=== PATIENT | male | born 1930 | race Caucasian/White ===

== ENCOUNTER 2017-07-23 04:53 | Inpatient (IN) | payer MEDICARE, OTHER ==
[2017-06-26 12:34] VITALS: BMI 29.0
[2017-06-26 12:44] LABS: BASO % 0.5 %; BASO ABS # 0.03 K/uL (0-0.2); EOS % 4.4 %; EOS ABS # 0.24 K/uL (0-0.5); HEMOGLOBIN 12.3 g/dL (14.0-18.0); IG# 0.01 K/uL (0.00-0.02); LYMPH % 23.4 %; LYMPH ABS # 1.28 K/uL (1.2-3.4); MEAN CELL VOLUME 98.9 fL (80-100); MEAN CORPUSCULAR HEMOGLOBIN 33.8 pg (25-34); MEAN CORPUSCULAR HGB CONC 34.2 g/dl (32-36); MONO % 13.1 %; MONO ABS # 0.72 K/uL (0.11-0.59); NEUT % 58.4 %; PLATELET COUNT 209 K/uL (130-400); RED CELL DISTRIBUTION WIDTH CV 13.1 % (11.5-14.5); RED CELL DISTRIBUTION WIDTH SD 46.8 fL (36.4-46.3); WHITE BLOOD COUNT 5.48 K/uL (4.8-10.8)
[2017-06-26 13:00] LABS: HEMOGLOBIN A1C 6.2 % (4.5-5.6)
--- NOTE | 2017-06-26 13:12 | PAT Medication Instructions ---
Service Date Jun 26, 2017. Current Home Medication List Aspirin (Aspirin), 325 MG PO QAM Calcium Citrate-Vitamin D (Citracal + D3 Maximum), 1 TAB PO QAM Cholecalciferol (Vitamin D3), 1 TAB PO QAM Fenofibrate (Tricor), 48 MG PO QAM Folic Acid (Folvite), 1 MG PO QAM Insulin Human NPH (Humulin N) Insulin Human Regular (Humulin R), 17 UNITS INJ QAM Levothyroxine Sodium (Levothyroxine Sodium), 1 TAB PO QAM Losartan Potassium (Cozaar), 50 MG PO QAM Rosuvastatin Calcium (Crestor), 20 MG PO QPM [Vitamin B12], 1 DOSE INJ MONTHLY Medication Instructions For Your Scheduled Surgery - Continue as directed: [Vitamin B12], 1 DOSE INJ MONTHLY - Check with surgeon and prescribing physician for instructions: Aspirin (Aspirin), 325 MG PO QAM - Hold the following medication 24 hours prior to surgery: Fenofibrate (Tricor), 48 MG PO QAM - Hold the following medications the morning of surgery: Insulin Human Regular (Humulin R), 17 UNITS INJ QAM Calcium Citrate-Vitamin D (Citracal + D3 Maximum), 1 TAB PO QAM Cholecalciferol (Vitamin D3), 1 TAB PO QAM Folic Acid (Folvite), 1 MG PO QAM Losartan Potassium (Cozaar), 50 MG PO QAM - Take the following medications the morning of surgery with a sip of water: Levothyroxine Sodium (Levothyroxine Sodium), 1 TAB PO QAM - Take the following medications as scheduled the night before surgery: Rosuvastatin Calcium (Crestor), 20 MG PO QPM Insulin Human NPH (Humulin N) AM (18 units)/HS (35 units) - For Insulin Dependent Diabetic patients: Test blood sugar A.M. of surgery. - If Blood sugar greater than 150, take half of your regular dose of: Insulin Human NPH (Humulin N) AM take 9 units - If Blood sugar less than 150, do not take any: Insulin Human NPH ( Humulin N) AM If you have any questions please call us at [phone] or [phone] or [phone]
--- NOTE | 2017-06-26 13:37 | DIAGNOSTIC IMAGING REPORT ---
CHEST 2 VIEWS ROUTINE CLINICAL HISTORY: pat preoperative evaluation COMPARISON STUDY: 03/07/2016 FINDINGS: Mild interstitial prominence throughout both hemithoraces considered chronic. Heart top normal in terms of size also chronic. No focal infiltrate. Diaphragms smooth. IMPRESSION: Chronic change. No acute process. The above report was generated using voice recognition software. It may contain grammatical, syntax or spelling errors. Electronically signed by: Evan Quiñones M.D. 06/26/2017 1:35 PM Dictated Date/Time: 06/26/2017 1:34 PM
[2017-06-26 13:56] LABS: ALBUMIN 3.7 gm/dl (3.4-5.0); CALCIUM 9.3 mg/dl (8.5-10.1); CREATININE 1.31 mg/dl (0.60-1.40); POTASSIUM 4.4 mmol/L (3.5-5.1)
--- NOTE | 2017-07-22 19:04 | HISTORY & PHYSICAL EXAMINATION ---
DATE OF ADMISSION: 07/23/2017 CHIEF COMPLAINT: Chronic right shoulder pain. HISTORY OF PRESENT ILLNESS: This is an 86-year-old male patient of Dr. Mcbride'stephon complaining of chronic right shoulder pain, longstanding, now progressively getting worse. The patient has failed conservative treatment. He has been diagnosed with chronic rotator cuff tendinopathy. The patient wishes to proceed with a right reversed total shoulder arthroplasty. PAST MEDICAL HISTORY: Hypertension, hypercholesterolemia, sleep apnea, history of a mini stroke, diabetes mellitus with insulin and prostate cancer. SOCIAL HISTORY: Nonsmoker, occasional drinker. PAST SURGICAL HISTORY: Aneurysm, prostate cancer with treatment and benign larynx nodule removal. FAMILY HISTORY: Noncontributory. REVIEW OF SYSTEMS: The patient complains of chronic right shoulder pain and weakness. Otherwise, denies any shortness of breath, chest pain, nausea, vomiting or any other joint complaints. MEDICATIONS: Levothyroxine 75 mcg daily, Cozaar 50 mg daily, TriCor 48 mg daily, Crestor 20 mg daily, folic acid 1 mg daily, Vitamin D3 1000 units daily, aspirin 325 daily, Citracal with vitamin D daily, Humulin insulin per scale and vitamin B12 1000 mcg tablet monthly. ALLERGIES: No known drug allergies. PHYSICAL EXAMINATION: GENERAL: Well-developed, well-nourished 86-year-old male in no acute distress. He is alert and oriented x3 and pleasant. HEENT: Normocephalic, atraumatic. Extraocular motions are intact. Pupils are equal and reactive to light. HEART: Regular rate and rhythm. No murmurs are appreciated. Heart has a 2/6 murmur. LUNGS: Clear. ABDOMEN: Soft and nontender, bowel sounds are present. EXTREMITIES: Right shoulder reveals active range of motion 0-160, passively to 0-180, both with crepitation and pain. He has 3/5 external rotation strength and 5/5 internal rotation strength. NEUROLOGIC: Neurovascularly he is intact in his right upper extremity. DIAGNOSES: Right chronic rotator cuff tendinopathy, hypertension, hypercholesterolemia, sleep apnea, history of mini stroke, diabetes mellitus with insulin and prostate cancer. PLAN: The patient was advised of his diagnoses. Indications, risks, benefits, and postop course have all been reviewed. The patient wishes to proceed with a right shoulder reverse total shoulder arthroplasty. Necessary consent forms, preoperative testing and clearances will be obtained.
[2017-07-23] VITALS (11 sets, daily range): BP systolic 116–195; BP diastolic 66–87; PULSE 65–81; TEMP 36.4–36.8; O2SAT 94–98; Ht 167.6 cm; Wt 83.0 kg
[~2017-07-23] VITALS: Ht 167.6 cm; Wt 83.0 kg
[~2017-07-23 04:53] MED LIST: ASPI325T45 PO; CALC1TAB9 PO; CHOL1000 PO; FENO48TA9 PO; FOLI1TAB8 PO; INSHNI; INSHRIE INJ; LEVO75TA5 PO; LOSA50TA6 PO; ROSU20TA PO; VITAMIN B12 INJ
[2017-07-23] MEDS ORDERED: ACETAMINOPHEN 500 MG TAB PO SCH (06:00)
[2017-07-23] MEDS ORDERED: LACTATED RINGER'S 1000ML 1,000 ML IV SCH (06:00)
[2017-07-23] MEDS ORDERED: CEFAZOLIN 2000MG IV PUSH 15 ML IV SCH (06:00)
[2017-07-23] MEDS ORDERED: CeleBREX 200 MG CAP PO SCH (06:00)
[2017-07-23] MEDS ORDERED: METOCLOPRAMIDE HCL 10 MG TAB PO SCH (06:00)
[2017-07-23] MEDS ORDERED: FAMOTIDINE 20 MG TAB PO SCH (06:00)
[2017-07-23] MEDS ORDERED: GABAPENTIN 300 MG CAP PO SCH (06:00)
[2017-07-23] MEDS ORDERED: PROPOFOL IV EMULSION 10 MG/ML 20 ML VIAL IV ONE (06:28)
[2017-07-23] MEDS ORDERED: GLYCOPYRROLATE INJ 0.2 MG/ML VIAL ONE (06:28)
[2017-07-23] MEDS ORDERED: NEOSTIGMINE METHYLSULFATE 5 MG/5 ML SYR ONE (06:28)
[2017-07-23] MEDS ORDERED: DEXAMETHASONE SOD INJ 4 MG/ML VIAL ONE (06:28)
[2017-07-23] MEDS ORDERED: LIDOCAINE HCL 2% 2 ML VIAL (20MG/ML) ONE ×2 (06:28→06:50)
[2017-07-23] MEDS ORDERED: ONDANSETRON INJ 2 MG/ML 2 ML VIAL ONE (06:28)
[2017-07-23] MEDS ORDERED: MIDAZOLAM HCL 1 MG/ML 2ML VIAL ONE (06:29)
[2017-07-23] MEDS ORDERED: FENTANYL CITRATE INJ 50 MCG/1 ML 2 ML VIAL ONE (06:29)
[2017-07-23] MEDS ORDERED: ROPIVACAINE 0.5% 5 MG/ML 30 ML VIAL ONE (06:30)
[2017-07-23] MEDS ORDERED: ROCURONIUM BROMIDE 10 MG/ML 5 ML VIAL IV ONE (06:32)
[2017-07-23] MEDS ORDERED: BACITRACIN 50000 UNIT VIAL ONE (06:43)
--- NOTE | 2017-07-23 07:10 | History & Physical Bridge Note ---
H&P Re-Evaluation Bridge Note: I have examined the patient, reviewed the History & Physical and in the interval since the performance of the History & Physical I have noted the following changes of clinical significance: No changes noted
[2017-07-23] MEDS ORDERED: EpHEDrine SULFATE INJ 50 MG/ML AMP IV PRN (07:45)
[2017-07-23] MEDS ORDERED: ATROPINE SULFATE 0.1 MG/ML 5ML SYR IV PRN (07:45)
[2017-07-23] MEDS ORDERED: FENTANYL CITRATE INJ 50 MCG/1 ML 2 ML VIAL IV PRN (07:45)
[2017-07-23] MEDS ORDERED: ONDANSETRON INJ 2 MG/ML 2 ML VIAL IV PRN ×2 (07:45→10:00)
[2017-07-23] MEDS ORDERED: EpHEDrine SULFATE 50MG/5ML SYR ONE (09:24)
[2017-07-23] MEDS ORDERED: PHENYLEPHRINE 100MCG/ML 5ML SYR ONE (09:24)
--- NOTE | 2017-07-23 09:41 | [facility] Post Operative Brief Note ---
Immediate Operative Summary Operative Date Jul 23, 2017. Pre-Operative Diagnosis Right chronic rotator cuff tear and rotator cuff arthropathy Post-Operative Diagnosis Right chronic rotator cuff tear and arthropathy,chronic biceps tendinopathy Procedure(s) Performed Reverse Right total shoulder arthroplasty; biceps tenodesis Surgeon Dr. Mcbride [employer] Summer Intern Surgeon(s) Evan Lopez PA-C Estimated Blood Loss 30cc Findings Consistent with Post-Op Diagnosis Specimens A. Right humeral head Drains 2 hemovac Anesthesia Type General Regional Complication(s) none
[2017-07-23] MEDS ORDERED: METOCLOPRAMIDE HCL INJ 5 MG/ML 2 ML VIAL IV PRN (10:00)
[2017-07-23] MEDS ORDERED: MoRPHine SULFATE 2 MG/ML CARP IV PRN ×2 (10:00→10:15)
[2017-07-23] MEDS ORDERED: MAGNESIUM HYDROXIDE SUSP 30 ML UDC PO PRN (10:00)
[2017-07-23] MEDS ORDERED: SOD PHOSPHATE/SOD BIPHOSPHATE ENEMA 132 ML BTL PR PRN (10:00)
[2017-07-23] MEDS ORDERED: ZOLPIDEM TARTRATE 5 MG TAB PO PRN (10:00)
[2017-07-23] MEDS ORDERED: BISACODYL 10 MG SUPP PR PRN (10:00)
[2017-07-23] MEDS ORDERED: NALOXONE HCL 0.4 MG/1 ML VIAL/CARP IV PRN (10:00)
[2017-07-23] MEDS ORDERED: MoRPHine SULFATE 4 MG/ML 1 ML CARP\\VIAL IV PRN (10:15)
--- NOTE | 2017-07-23 10:21 | Anesthesiology Progress Note ---
Anesthesia Post Op Note Date & Time Jul 23, 2017 at 10:21 Vital Signs Pain Intensity: 0 Vital Signs Past 12 Hours Date Time Temp Pulse Resp B/P (MAP) Pulse Ox O2 Delivery O2 Flow Rate FiO2 07/23/17 10:10 68 12 160/65 99 Oxymask 10 07/23/17 10:00 68 13 156/65 99 Oxymask 10 07/23/17 09:50 36.5 73 21 158/65 99 Oxymask 10 07/23/17 05:46 36.5 77 18 195/69 95 Room Air Notes Mental Status: alert / awake / arousable, participated in evaluation Pt Amnestic to Procedure: Yes Nausea / Vomiting: adequately controlled Pain: adequately controlled Airway Patency, RR, SpO2: stable & adequate BP & HR: stable & adequate Hydration State: stable & adequate Anesthetic Complications: no major complications apparent
[2017-07-23] MEDS ORDERED: GLUCOSE 10 TABS/TUBE PO PRN (10:30)
[2017-07-23] MEDS ORDERED: DEXTROSE 50% 50 ML SYR IV PRN (10:30)
[2017-07-23] MEDS ORDERED: GLUCOSE 40% GEL 15 GM TUBE PO PRN (10:30)
[2017-07-23] MEDS ORDERED: GLUCAGON FOR INJ 1 MG VIAL SQ PRN (10:30)
--- NOTE | 2017-07-23 10:58 | DIAGNOSTIC IMAGING REPORT ---
R SHOULDER MIN 2 VIEWS ROUTINE CLINICAL HISTORY: Post shoulder surgery COMPARISON: None. DISCUSSION: There are postsurgical changes of a reverse total right shoulder arthroplasty. Overlying skin sandra and surgical drains are evident. There is no dislocation. Incidental note is made of blunting of the right lateral costophrenic angle and right basilar airspace opacities IMPRESSION: 1. Postsurgical changes of a total right shoulder arthroplasty. No evidence of dislocation 2. Nonspecific right basilar pulmonary airspace opacities. Blunting of the right lateral costophrenic angle Electronically signed by: Robbie Hutchison M.D. 07/23/2017 10:56 AM Dictated Date/Time: 07/23/2017 10:55 AM
--- NOTE | 2017-07-23 11:29 | Medical Consult ---
Consultation Date of Consultation: Jul 23, 2017. Attending Physician: Gilbert Mcbride M.D. Family History No significant family history Social History Smoking Status: Former Smoker Marital Status: Housing Status: lives with family Occupation Status: retired Allergies Coded Allergies: No Known Allergies (Unverified , 07/23/17) Current Inpatient Medications Current Inpatient Medications Medications (Trade) Dose Ordered Sig/Adin Route Start Time Stop Time Status Last Admin Dose Admin Cefazolin Sodium 15 ml @ 3.75 mls/ min PREOP IV 07/23/17 06:00 07/23/17 18:00 07/23/17 07:18 3.75 MLS/MIN Acetaminophen (Tylenol Tab) 1,000 mg PREOP PO 07/23/17 06:00 07/23/17 18:00 07/23/17 06:08 1,000 MG Celecoxib (CeleBREX CAP) 200 mg PREOP PO 07/23/17 06:00 07/23/17 18:00 07/23/17 06:08 200 MG Famotidine (Pepcid Tab) 20 mg PREOP PO 07/23/17 06:00 07/23/17 18:00 07/23/17 06:07 20 MG Gabapentin (Neurontin Cap) 300 mg PREOP PO 07/23/17 06:00 07/23/17 18:00 07/23/17 06:07 300 MG Metoclopramide HCl (Reglan Tab) 10 mg PREOP PO 07/23/17 06:00 07/23/17 18:00 07/23/17 06:07 10 MG Lactated Ringer's 1,000 ml @ 15 mls/hr Q24H IV 07/23/17 06:00 07/24/17 05:59 07/23/17 06:29 15 MLS/HR Fentanyl Citrate (Fentanyl Inj) 25 mcg Q5M PRN IV 07/23/17 07:45 07/23/17 12:45 Ondansetron HCl (Zofran Inj) 4 mg ONE PRN IV 07/23/17 07:45 07/23/17 12:45 Ephedrine Sulfate (EpHEDrine SULFATE INJ) 5 mg Q5M PRN IV 07/23/17 07:45 07/23/17 12:45 Atropine Sulfate (Atropine Sulfate 0.1mg/ml Inj) 0.5 mg Q1M PRN IV 07/23/17 07:45 07/23/17 12:45 Aspirin (Ecotrin Tab) 325 mg QAM PO 07/24/17 09:00 08/23/17 08:59 Cholecalciferol (Vitamin D Tab) 1,000 inter.unit QAM PO 07/24/17 09:00 08/23/17 08:59 Fenofibrate (Tricor Tab) 48 mg QAM PO 07/24/17 09:00 08/23/17 08:59 Folic Acid (Folvite Tab) 1 mg QAM PO 07/24/17 09:00 08/23/17 08:59 Levothyroxine Sodium (Synthroid Tab) 75 mcg DAILYBB PO 07/24/17 06:00 08/23/17 05:59 Losartan Potassium (coZAAR TAB) 50 mg QAM PO 07/24/17 09:00 08/23/17 08:59 Rosuvastatin Calcium (Crestor Tab) 20 mg QPM PO 07/23/17 21:00 08/22/17 20:59 Calcium/Vitamin D (Caltrate Plus Tab) 1 tab DAILY PO 07/24/17 09:00 08/23/17 08:59 Diphenhydramine HCl (Benadryl Cap) 25 mg Q8 PRN PO 07/23/17 10:00 08/22/17 09:59 Zolpidem Tartrate (Ambien Tab) 5 mg HSZ PRN PO 07/23/17 10:00 08/22/17 09:59 Metoclopramide HCl (Reglan Inj) 10 mg Q6H PRN IV 07/23/17 10:00 08/22/17 09:59 Ondansetron HCl (Zofran Inj) 4 mg Q6H PRN IV 07/23/17 10:00 08/22/17 09:59 Pantoprazole Sodium (Protonix Tab) 40 mg QAM PO 07/24/17 09:00 07/27/17 09:01 Potassium Chloride 10 meq/ Sodium Chloride 1,005 ml @ 100 mls/hr Q10H3M IV 07/23/17 11:00 07/24/17 10:00 Oxycodone HCl (Roxicodone Immediate Rel Tab) `1-2 TABS FOR PAIN `1 TAB... Q4H PRN PO 07/23/17 10:00 08/06/17 09:59 Acetaminophen (Tylenol Tab) 1,000 mg Q8 PO 07/23/17 14:00 08/22/17 13:59 Naloxone HCl (Narcan Inj) 0.1 mg Q2M PRN IV 07/23/17 10:00 08/22/17 09:59 Magnesium Hydroxide (Milk Of Magnesia Susp) 30 ml Q6H PRN PO 07/23/17 10:00 08/22/17 09:59 Bisacodyl (Dulcolax Supp) 10 mg DAILY PRN ND 07/23/17 10:00 08/22/17 09:59 Sodium Biphosphate/ Sodium Phosphate (Fleet Enema) 132 ml DAILY PRN ND 07/23/17 10:00 08/22/17 09:59 Docusate Sodium (coLACE CAP) 100 mg BID PO 07/23/17 21:00 08/22/17 20:59 Multivitamins (Multivitamin Tab) 1 tab DAILY PO 07/24/17 09:00 08/23/17 08:59 Cefazolin Sodium 2000 mg/Syringe 15 ml @ 3.75 mls/ min Q8H IV 07/23/17 16:00 07/24/17 00:03 Insulin Aspart (novoLOG ASPART) SLIDING SCALE G... ACHS SC 07/23/17 12:00 08/22/17 11:59 Morphine Sulfate (MoRPHine SULFATE INJ) 2 mg Q2H PRN IV 07/23/17 10:15 08/06/17 10:14 Morphine Sulfate (MoRPHine SULFATE INJ) 4 mg Q2H PRN IV 07/23/17 10:15 08/06/17 10:14 Glucose (Glucose 40% Gel) 15-30 GRAMS 15 GRAMS... UD PRN PO 07/23/17 10:30 08/22/17 10:29 Glucose (Glucose Chew Tab) 4-8 Tablets 4 Tabl... UD PRN PO 07/23/17 10:30 08/22/17 10:29 Dextrose (Dextrose 50% 50ML Syringe) 25-50ML OF 50% DW IV FOR... UD PRN IV 07/23/17 10:30 08/22/17 10:29 Glucagon (Glucagon Inj) 1 mg UD PRN SQ 07/23/17 10:30 08/22/17 10:29 Physical Exam Date Time Temp Pulse Resp B/P (MAP) Pulse Ox O2 Delivery O2 Flow Rate FiO2 07/23/17 11:07 36.6 65 19 149/66 (93) 98 Nasal Cannula 2.0 07/23/17 10:40 98 Nasal Cannula 2.0 07/23/17 10:40 Nasal Cannula 2.0 07/23/17 10:40 36.5 71 16 156/69 (98) 98 Nasal Cannula 2.0 07/23/17 10:20 36.5 70 13 158/78 97 Nasal Cannula 2 07/23/17 10:10 68 12 160/65 99 Oxymask 10 07/23/17 10:00 68 13 156/65 99 Oxymask 10 07/23/17 09:50 36.5 73 21 158/65 99 Oxymask 10 07/23/17 05:46 36.5 77 18 195/69 95 Room Air Laboratory Results Last 24 Hours Test 07/23/17 05:16 07/23/17 09:58 Bedside Glucose 123 mg/dl 134 mg/dl Assessment & Plan Thank you for this consultation. We will follow the patient with you during their hospital stay. You can reach a member of the [facility] Medicine Team 25/12 via pager @ [phone]. You can reach me via cell @ [phone]. .
[2017-07-23] MEDS: POTASSIUM CHLORIDE INJ 10 MEQ in SODIUM CHLORIDE 0.9% 1000ML 1,000 ML IV SCH ×2 (11:49→21:33)
[2017-07-23] MEDS ORDERED: LABETALOL HCL IV 5 MG/ML 20ML IV ONE (11:53)
[2017-07-23] MEDS: INSULIN ASPART 100 UNITS/ML 3 ML PEN SC SCH ×3 (12:38→21:31)
[2017-07-23] MEDS: ACETAMINOPHEN 500 MG TAB PO SCH ×2 (13:14→21:22)
[2017-07-23] MEDS: CEFAZOLIN IV 2,000 MG in SYRINGE 0 ML IV SCH (15:56)
--- NOTE | 2017-07-23 17:03 | Medical Consult ---
Consultation Date of Consultation: Jul 23, 2017. Attending Physician: Gilbert Mcbride M.D. Reason for Consultation: Post Op Medical Management History of Present Illness Patient is an 86 yr male with PMH of Cerebrovascular disease S/P Bleeding aneurysms, CKD III, DM II, HTN, Hypothyroidism, H/O Prostate Cancer, Sleep Apnea , HLP and other problems presents for an elective Reverse Right total shoulder arthroplasty for Right chronic rotator cuff tear and rotator cuff arthropathy by . Patient is doing well post OP. His right shoulder pain is controlled. Denies any chest pain, SOB, dizziness, nausea, abd pain, headache. No complaints post OP. Family History No significant family history Reviewed, Not Relevant Social History Smoking Status: Former Smoker Alcohol Use: none Marital Status: Housing Status: lives with family Occupation Status: retired Allergies Coded Allergies: No Known Allergies (Unverified , 07/23/17) Home Medications Reviewed Current Inpatient Medications Current Inpatient Medications Medications (Trade) Dose Ordered Sig/Adin Route Start Time Stop Time Status Last Admin Dose Admin Cefazolin Sodium 15 ml @ 3.75 mls/ min PREOP IV 07/23/17 06:00 07/23/17 18:00 07/23/17 07:18 3.75 MLS/MIN Acetaminophen (Tylenol Tab) 1,000 mg PREOP PO 07/23/17 06:00 07/23/17 18:00 07/23/17 06:08 1,000 MG Celecoxib (CeleBREX CAP) 200 mg PREOP PO 07/23/17 06:00 07/23/17 18:00 07/23/17 06:08 200 MG Famotidine (Pepcid Tab) 20 mg PREOP PO 07/23/17 06:00 07/23/17 18:00 07/23/17 06:07 20 MG Gabapentin (Neurontin Cap) 300 mg PREOP PO 07/23/17 06:00 07/23/17 18:00 07/23/17 06:07 300 MG Metoclopramide HCl (Reglan Tab) 10 mg PREOP PO 07/23/17 06:00 07/23/17 18:00 07/23/17 06:07 10 MG Lactated Ringer's 1,000 ml @ 15 mls/hr Q24H IV 07/23/17 06:00 2/20/18 05:59 07/23/17 06:29 15 MLS/HR Aspirin (Ecotrin Tab) 325 mg QAM PO 07/24/17 09:00 08/23/17 08:59 Cholecalciferol (Vitamin D Tab) 1,000 inter.unit QAM PO 07/24/17 09:00 08/23/17 08:59 Fenofibrate (Tricor Tab) 48 mg QAM PO 07/24/17 09:00 08/23/17 08:59 Folic Acid (Folvite Tab) 1 mg QAM PO 07/24/17 09:00 08/23/17 08:59 Levothyroxine Sodium (Synthroid Tab) 75 mcg DAILYBB PO 07/24/17 06:00 08/23/17 05:59 Losartan Potassium (coZAAR TAB) 50 mg QAM PO 07/24/17 09:00 08/23/17 08:59 Rosuvastatin Calcium (Crestor Tab) 20 mg QPM PO 07/23/17 21:00 08/22/17 20:59 Calcium/Vitamin D (Caltrate Plus Tab) 1 tab DAILY PO 07/24/17 09:00 08/23/17 08:59 Diphenhydramine HCl (Benadryl Cap) 25 mg Q8 PRN PO 07/23/17 10:00 08/22/17 09:59 Zolpidem Tartrate (Ambien Tab) 5 mg HSZ PRN PO 07/23/17 10:00 08/22/17 09:59 Metoclopramide HCl (Reglan Inj) 10 mg Q6H PRN IV 07/23/17 10:00 08/22/17 09:59 Ondansetron HCl (Zofran Inj) 4 mg Q6H PRN IV 07/23/17 10:00 08/22/17 09:59 Pantoprazole Sodium (Protonix Tab) 40 mg QAM PO 07/24/17 09:00 07/27/17 09:01 Potassium Chloride 10 meq/ Sodium Chloride 1,005 ml @ 100 mls/hr Q10H3M IV 07/23/17 11:00 07/24/17 10:00 07/23/17 11:49 100 MLS/HR Oxycodone HCl (Roxicodone Immediate Rel Tab) `1-2 TABS FOR PAIN `1 TAB... Q4H PRN PO 07/23/17 10:00 08/06/17 09:59 Acetaminophen (Tylenol Tab) 1,000 mg Q8 PO 07/23/17 14:00 08/22/17 13:59 07/23/17 13:14 1,000 MG Naloxone HCl (Narcan Inj) 0.1 mg Q2M PRN IV 07/23/17 10:00 08/22/17 09:59 Magnesium Hydroxide (Milk Of Magnesia Susp) 30 ml Q6H PRN PO 07/23/17 10:00 08/22/17 09:59 Bisacodyl (Dulcolax Supp) 10 mg DAILY PRN MS 07/23/17 10:00 08/22/17 09:59 Sodium Biphosphate/ Sodium Phosphate (Fleet Enema) 132 ml DAILY PRN MS 07/23/17 10:00 08/22/17 09:59 Docusate Sodium (coLACE CAP) 100 mg BID PO 07/23/17 21:00 08/22/17 20:59 Multivitamins (Multivitamin Tab) 1 tab DAILY PO 07/24/17 09:00 08/23/17 08:59 Cefazolin Sodium 2000 mg/Syringe 15 ml @ 3.75 mls/ min Q8H IV 07/23/17 16:00 07/24/17 00:03 07/23/17 15:56 3.75 MLS/MIN Insulin Aspart (novoLOG ASPART) SLIDING SCALE G... ACHS SC 07/23/17 12:00 08/22/17 11:59 07/23/17 12:38 4 UNITS Morphine Sulfate (MoRPHine SULFATE INJ) 2 mg Q2H PRN IV 07/23/17 10:15 08/06/17 10:14 Morphine Sulfate (MoRPHine SULFATE INJ) 4 mg Q2H PRN IV 07/23/17 10:15 08/06/17 10:14 Glucose (Glucose 40% Gel) 15-30 GRAMS 15 GRAMS... UD PRN PO 07/23/17 10:30 08/22/17 10:29 Glucose (Glucose Chew Tab) 4-8 Tablets 4 Tabl... UD PRN PO 07/23/17 10:30 08/22/17 10:29 Dextrose (Dextrose 50% 50ML Syringe) 25-50ML OF 50% DW IV FOR... UD PRN IV 07/23/17 10:30 08/22/17 10:29 Glucagon (Glucagon Inj) 1 mg UD PRN SQ 07/23/17 10:30 08/22/17 10:29 Review of Systems See HPI for pertinent positives & negatives. A total of 10 systems reviewed and were otherwise negative. Physical Exam Date Time Temp Pulse Resp B/P (MAP) Pulse Ox O2 Delivery O2 Flow Rate FiO2 07/23/17 15:40 97 Room Air 07/23/17 15:22 36.4 77 16 143/87 (105) 97 Nasal Cannula 2.0 07/23/17 13:47 36.5 70 19 116/66 (83) 98 Nasal Cannula 2.0 07/23/17 12:42 36.6 81 16 158/66 (96) 98 Nasal Cannula 2.0 07/23/17 12:40 36.6 81 16 158/66 (96) 98 Nasal Cannula 2.0 07/23/17 11:45 36.8 75 18 150/75 (100) 98 Nasal Cannula 2.0 07/23/17 11:07 36.6 65 19 149/66 (93) 98 Nasal Cannula 2.0 07/23/17 10:40 98 Nasal Cannula 2.0 07/23/17 10:40 Nasal Cannula 2.0 07/23/17 10:40 36.5 71 16 156/69 (98) 98 Nasal Cannula 2.0 07/23/17 10:20 36.5 70 13 158/78 97 Nasal Cannula 2 07/23/17 10:10 68 12 160/65 99 Oxymask 10 07/23/17 10:00 68 13 156/65 99 Oxymask 10 07/23/17 09:50 36.5 73 21 158/65 99 Oxymask 10 07/23/17 05:46 36.5 77 18 195/69 95 Room Air General Appearance: WD/WN, no apparent distress Head: normocephalic, atraumatic Eyes: normal inspection, PERRL, EOMI, sclerae normal ENT: normal ENT inspection, hearing grossly normal Neck: supple, trachea midline Respiratory/Chest: chest non-tender, lungs clear, normal breath sounds, no respiratory distress, no accessory muscle use Cardiovascular: regular rate, rhythm, no edema, + diastolic murmur Abdomen/GI: normal bowel sounds, non tender, soft Back: normal inspection Extremities/Musculoskelatal: normal inspection, + pertinent finding (Right Shoulder in surgical dressing, +Drain) 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, no motor/sensory deficits, alert, normal mood/affect, oriented x 3 Skin: normal color, warm/dry Laboratory Results Last 24 Hours Test 07/23/17 05:16 07/23/17 09:58 07/23/17 11:12 Bedside Glucose 123 mg/dl 134 mg/dl 169 mg/dl Assessment & Plan S/P Reverse Right total shoulder arthroplasty POD # 0 H/O Right chronic rotator cuff tear and rotator cuff arthropathy Post Op pain control, anticoagulation, Wound care, PT/OT per Orthopedics Monitor Hb for Post Anemia Bowel regimen to prevent constipation H/O Cerebrovascular disease S/P Bleeding aneurysms Mild left sided residual paresis Stable Continue home meds CKD III: Cr at baseline Monitor renal function Avoid Nephrotoxic agents DM II: A1C: 6.2 Start on ISS, Lantus Monitor Blood glucose Levels HTN: Stable Continue Cozaar Hypothyroidism: Continue Levothyroxine H/O Prostate Cancer: HLP: Continue statins DVT Px: Per Ortho Code Status: Full Code Disposition: Per Ortho
[2017-07-23] MEDS ORDERED: PHARMACY GLYCEMIC MGMT CONSULT SCH (20:51)
[2017-07-23] MEDS ORDERED: INSULIN GLARGINE SOLOSTAR 100 UNITS/ML 3 ML PEN SC SCH ×2 (21:00→21:45)
[2017-07-23] MEDS: DOCUSATE SODIUM 100 MG CAP PO SCH (21:21)
[2017-07-23] MEDS: ROSUVASTATIN CALCIUM 20 MG TAB PO SCH (21:21)
--- NOTE | 2017-07-23 21:21 | OPERATIVE REPORT ---
DATE OF OPERATION: 07/23/2017 INDICATION FOR PROCEDURE: An 86-year-old male with chronic right shoulder pain and weakness. He has a high-riding humeral head, narrowed acromiohumeral interval, exam consistent with a chronic rotator cuff tear. He still has good internal rotation strength. He has had a successful left reverse total shoulder arthroplasty in the past. He wants to proceed with right reverse total shoulder arthroplasty. PREOPERATIVE DIAGNOSIS: Right shoulder rotator cuff arthropathy, nonrepairable chronic rotator cuff tear. POSTOPERATIVE DIAGNOSES: Same including significant chronic biceps tenosynovitis, biceps tendinopathy. PROCEDURE: Right shoulder, reverse total shoulder arthroplasty including biceps tenodesis. SURGEON: Gilbert Mcbride MD. RESPIRATORY CARE TECHNICIAN: Evan Lopez PA-C. ANESTHESIA: Regional block and general. OPERATIVE PROCEDURE: The patient was taken to the operating room, anesthetized with regional block and general anesthetic. He was positioned on the operating room table in a 30 degree beach chair position. A towel roll was placed under the medial border of his right scapula. He was translated to right side of the bed, so his shoulder could be manipulated off the bed as necessary. He had TEDs and SCDs. Foam headrest. All extremities were padded. His right upper extremity exam demonstrated he had about 150 degrees of forward elevation and external rotation to 70 degrees. He had subacromial crepitation. His right shoulder was sterilely prepped and draped with ChloraPrep. An anterior deltopectoral approach was performed in longitudinal fashion in the deltopectoral interval. Skin was incised sharply. Subcutaneous flaps were elevated. The cephalic vein was dissected out and retracted laterally with the deltoid. The pectoralis was retracted medially. Some crossing veins were tied off with silk ties and divided. The clavipectoral fascia was divided at the lateral margin of conjoined tendon and extended up to the CA ligament which was partially released. The subscapularis bursa was resected. The subacromial bursa was resected. This revealed a large rotator cuff tear from the subscapularis back to about one-half of the infraspinatus and teres minor posteriorly which was all that was intact. The superior surface of the humeral head was arthritic from impingement on the acromion. The circumflex vessels were tied off with silk ties and divided laterally. The upper centimeter of the pectoralis was released for inferior exposure. The biceps tendon sheath had marked chronic tenosynovitis extending up in the bicipital groove. Tenosynovectomy was performed. The biceps was tenodesed to the pectoralis tendon with [id number] #2 FiberWire sutures. The proximal biceps was resected. The subscapularis muscle fibers were split at the level of the circumflex vessels leaving a cuff tissue to protect the axillary nerve inferiorly. A Kitner elevator was used to reflect the muscle fibers off the inferior capsule and a blunt Hohmann retractor was placed. An incision was made through the bicipital groove and a subperiosteal dissection was performed releasing the subscapularis tendon off the lesser tuberosity. A #1 Vicryl traction suture was placed into the free end of the subscapularis and capsule. The humerus was gradually externally rotated until the capsule was released off the inferior neck of the humerus which was also facilitated by using a Mata elevator to release the capsule. The humeral head had rimming osteophytes, fairly small to moderate arthritic changes mainly superiorly. The humeral head was then retracted posterior to the glenoid with a Fukuda retractor. Then the remainder of the labrum was resected circumferentially. The remainder of the biceps tendon which was widened and tendinopathic was resected off the superior glenoid. Capsular release was performed anterior inferiorly and posterior inferiorly using electrocautery on bone followed by a Mata elevator and the triceps was released. The humeral head was then exposed with extension and external rotation. I used the Tornier, reversed total shoulder arthroplasty system using the Ascend Flex long stems and the Aequalis glenoid sphere component and baseplate. With the traction about the glenoid, a central drill hole was made for a 29 baseplate. It was placed along the inferior aspect of the glenoid so that basically lined up with the inferior glenoid. After the central drill hole was made in 10 degrees of inferior tilt, the reamer was used for the baseplate and then the central hole was widened and then the 29 mm baseplate was impacted in position with tight pressfit in the patient's good hard bone. The anterior and posterior compression screws were 20 and 18 mm respectively and superior and inferior locking screws were 32 mm screws in length. With excellent fixation of the baseplate, the fan reamer was used and the excess bone was cleared and then the 36 diameter glenosphere with +2 offset was placed on the 29 mm baseplate and then screwed it tightly. Copious irrigation was performed with antibiotic solution and bacitracin. We assessed the glenosphere to be stable and then went ahead and prepared the humerus. Initially, we previously had made a humeral head cut with 20 degrees of retroversion using the cutting guide and the canal was broached up to a size 6 and we placed on a high offset 0 mm humeral tray and used a 36+6 humeral trial insert. A trial reduction demonstrated no shuck, full stability through full passive range of motion. The trial was removed on the humeral side and 3 drill holes were made through the neck and bicipital groove area for passage of transosseous #5 FiberWire sutures to repair the subscapularis. After copious irrigation with antibiotic solution and bacitracin, the final component was assembled which was the Ascend Flex 6B long stem with a 0 mm high offset humeral tray and a 36+6 mm humeral insert. After that was assembled, it was impacted into the humerus with a tight pressfit and then the humerus was reduced to the glenoid sphere. Stability was verified. After copious irrigation, the subscapularis was repaired with the #5 FiberWire sutures using Mahesh-Sandoval suture technique. Then we did lateral soft tissue fixation with [id number] #2 FiberWire sutures. The range of motion was 150 degrees of forward elevation and 50 degrees of external rotation without any tension on the repair. Then the pectoralis was repaired with bjeaei-[id number] #2 FiberWire passing the sutures back through the biceps tendon to reinforce the tenodesis. Then 2 Hemovac drains were brought out laterally and was placed into the deltopectoral interval. Then the deltopectoral interval was repaired with usqnhb-[id number] #1 Vicryl sutures. Subcutaneous tissues were closed with interrupted 2-0 Vicryl, skin closed with sandra. Sterile dressing was applied and the patient tolerated the procedure well. SOSA Chilel was my public relations assistant. He functioned as public relations assistant through the entire procedure. He assisted in patient positioning, arm positioning, assisted in soft tissue retraction, instrument management and he performed the subcutaneous and skin closure and will participate in postoperative care of the patient. I attest to the content of the Intraoperative Record and any orders documented therein. Any exception s are noted below.
[2017-07-24] VITALS (8 sets, daily range): BP systolic 163–179; BP diastolic 57–70; PULSE 69–74; TEMP 36.6–36.7; O2SAT 94–99
[2017-07-24] MEDS: CEFAZOLIN IV 2,000 MG in SYRINGE 0 ML IV SCH (00:27)
[2017-07-24] MEDS ORDERED: INSULIN ASPART 100 UNITS/ML 3 ML PEN SC SCH (02:00)
[2017-07-24] MEDS: ACETAMINOPHEN 500 MG TAB PO SCH ×3 (05:42→21:37)
[2017-07-24] MEDS: LEVOTHYROXINE 75 MCG TAB PO SCH (05:42)
[2017-07-24 07:03] LABS: HEMOGLOBIN 10.4 g/dL (14.0-18.0); MEAN CELL VOLUME 99.4 fL (80-100); MEAN CORPUSCULAR HEMOGLOBIN 33.3 pg (25-34); MEAN CORPUSCULAR HGB CONC 33.5 g/dl (32-36); MEAN PLATELET VOLUME 10.6 fL (7.4-10.4); PLATELET COUNT 165 K/uL (130-400); RED CELL DISTRIBUTION WIDTH CV 13.2 % (11.5-14.5); RED CELL DISTRIBUTION WIDTH SD 47.3 fL (36.4-46.3); WHITE BLOOD COUNT 7.85 K/uL (4.8-10.8)
[2017-07-24] MEDS: POTASSIUM CHLORIDE INJ 10 MEQ in SODIUM CHLORIDE 0.9% 1000ML 1,000 ML IV SCH (07:06)
[2017-07-24 07:31] LABS: CREATININE 1.49 mg/dl (0.60-1.40); POTASSIUM 4.3 mmol/L (3.5-5.1)
--- NOTE | 2017-07-24 07:35 | Orthopedic Progress Note ---
Orthopedic Progress Note Date of Service Jul 24, 2017. Subjective Post OP Day: 1 Reports: feeling well, pain controlled w PO medications, Denies: complaints, chest pain, SOB, nausea / vomiting, light headedness, calf pain Objective N/V intact, capillary refill less than 2 sec., dressing C/D/I, A&O x3 Sling in tact, fingers mobile. Date Time Temp Pulse Resp B/P (MAP) Pulse Ox O2 Delivery O2 Flow Rate FiO2 07/24/17 07:20 36.6 74 18 168/69 (102) 94 Room Air 07/24/17 02:24 36.7 72 16 163/66 (98) 94 Room Air 07/24/17 00:30 Room Air 07/23/17 22:50 36.6 81 18 165/68 (100) 94 Room Air 07/23/17 19:38 36.5 72 17 162/73 (102) 94 Room Air 07/23/17 15:40 97 Room Air 07/23/17 15:22 36.4 77 16 143/87 (105) 97 Nasal Cannula 2.0 07/23/17 13:47 36.5 70 19 116/66 (83) 98 Nasal Cannula 2.0 07/23/17 12:42 36.6 81 16 158/66 (96) 98 Nasal Cannula 2.0 07/23/17 12:40 36.6 81 16 158/66 (96) 98 Nasal Cannula 2.0 07/23/17 11:45 36.8 75 18 150/75 (100) 98 Nasal Cannula 2.0 07/23/17 11:07 36.6 65 19 149/66 (93) 98 Nasal Cannula 2.0 07/23/17 10:40 98 Nasal Cannula 2.0 07/23/17 10:40 Nasal Cannula 2.0 07/23/17 10:40 36.5 71 16 156/69 (98) 98 Nasal Cannula 2.0 07/23/17 10:20 36.5 70 13 158/78 97 Nasal Cannula 2 07/23/17 10:10 68 12 160/65 99 Oxymask 10 07/23/17 10:00 68 13 156/65 99 Oxymask 10 07/23/17 09:50 36.5 73 21 158/65 99 Oxymask 10 Laboratory Results 24 Hours: Test 07/24/17 06:07 Hematocrit 31.0 % Hemoglobin 10.4 g/dL Assessment & Plan Assessment: POD #1, Right shoulder Reversed TSA, Biceps Tenodesis Plan: PT/ OT DVT proph- ASA D/C planning- Home w OPPT As per medicine Inhouse Planning Pain Management: Morphine, PO Tylenol, Oxy IR DVT Prophylaxis: SCDs, ASA Discharge Planning Discharge Planning: home with oppt Pain Management: PO Tylenol, Oxy IR DVT Prophylaxis: ASA
[2017-07-24] MEDS: CALCIUM 600MG + VIT D 400 IU TAB PO SCH (09:02)
[2017-07-24] MEDS: FENOFIBRATE 48 MG TAB PO SCH (09:02)
[2017-07-24] MEDS: LOSARTAN POTASSIUM 50 MG TAB PO SCH (09:02)
[2017-07-24] MEDS: DOCUSATE SODIUM 100 MG CAP PO SCH ×2 (09:02→21:36)
[2017-07-24] MEDS: CHOLECALCIFEROL 1000 INTER.UNIT TAB PO SCH (09:02)
[2017-07-24] MEDS: MULTIVITAMIN TAB PO SCH (09:02)
[2017-07-24] MEDS: ASPIRIN 325 MG ECTAB PO SCH (09:03)
[2017-07-24] MEDS: PANTOprazole SOD 40 MG TAB PO SCH (09:03)
[2017-07-24] MEDS: INSULIN ASPART 100 UNITS/ML 3 ML PEN SC SCH ×4 (09:12→21:35)
[2017-07-24] MEDS: INSULIN GLARGINE SOLOSTAR 100 UNITS/ML 3 ML PEN SC SCH ×2 (09:13→21:36)
[2017-07-24] MEDS: OXYCODONE HCL IR 5 MG TAB (IMMEDIATE RELEASE) PO PRN ×2 (09:14→15:36)
--- NOTE | 2017-07-24 09:38 | Pharmacy Progress Note ---
Glycemic Control Intl Consult Date of Service Jul 24, 2017. Scope Glycemic Pharmacist consulted by Dr Garay on 07/23/17 for glycemic control and to write orders per [facility] inpatient glycemic control protocol. Objective Weight (Kilograms): 83.000 Accuchecks BSG (last 24hrs): Test 07/23/17 09:58 07/23/17 11:12 07/23/17 17:00 07/23/17 20:17 Bedside Glucose 134 mg/dl (70-99) 169 mg/dl (70-99) 261 mg/dl (70-99) 260 mg/dl (70-99) Test 07/24/17 02:19 07/24/17 06:07 07/24/17 08:19 Bedside Glucose 189 mg/dl (70-99) 174 mg/dl (70-99) Random Glucose 147 mg/dl (70-99) Laboratory Data (last 24hrs) Test 07/24/17 06:07 Anion Gap 7.0 mmol/L BUN/Creatinine Ratio 16.2 Blood Urea Nitrogen 24 mg/dl Creatinine 1.49 mg/dl Potassium Level 4.3 mmol/L Sodium Level 138 mmol/L White Blood Count 7.85 K/uL Recent Pertinent Medications Outpatient Anti-diabetic Regimen: * NPH 18 units SQ qAM, 35 units SQ qPM * Regular insulin 17 units SQ qAM * A1c = 6.2% (06/26/17) Risk Factors for Insulin Resistance: * Steroids: DXM 8mg x1 dose pre-op * Infection: Ancef livan-op * IVF: NS + KCl @ 100mL/hr * Recent Surgery: POD #1 s/p R shoulder arthroplasty * Diet: Type 2 diabetic diet Assessment & Plan ASSESSMENT: * Mr Zee is an 86yo diabetic male POD #1 s/p R shoulder arthroplasty. * Patient received a dose of dexamethasone in the OR yesterday and has been experiencing steroid-induced hyperglycemia since then. PLAN FOR INPATIENT GLYCEMIC CONTROL: * Basal insulin with LANTUS 15 units SQ BID * Correctional Insulin with NOVOLOG per scale ACHS or Q6hrs while NPO * Goal Range: Low 110 mg/dL - High 140 mg/dL * Correction Factor: 25 mg/dL/unit * Nutritional / Prandial insulin per carb ratio of 1 unit per 9 grams CHO consumed * Please note that the plan above was derived based on current level of insulin resistance and hospital stress. These recommendations are appropriate for inpatient admission only. Plan of care upon discharge will need to be reassessed to avoid potential outpatient hypo/hyperglycemia. Thank you.
[2017-07-24] MEDS ORDERED: INSULIN GLARGINE SOLOSTAR 100 UNITS/ML 3 ML PEN SC SCH (09:45)
--- NOTE | 2017-07-24 17:01 | Progress Note ---
Internal Med Progress Note Date of Service: Jul 24, 2017. Provider Documentation: SUBJECTIVE: Patient denies pain. OBJECTIVE: General Appearance: WD/WN, no apparent distress Head: normocephalic, atraumatic Eyes: normal inspection, sclerae normal ENT: normal ENT inspection, hearing grossly normal Neck: supple, trachea midline Respiratory/Chest: chest non-tender, lungs clear, normal breath sounds, no respiratory distress, no accessory muscle use Cardiovascular: regular rate, rhythm, no edema, + diastolic murmur Abdomen/GI: normal bowel sounds, non tender, soft Back: normal inspection Extremities/Musculoskelatal: Right arm in sling with drain Neurologic/Psych: normal mood/affect, oriented x 3 Skin: normal color, warm/dry ASSESSMENT & PLAN: POD #1, Right shoulder Reversed TSA, H/O Right chronic rotator cuff tear and rotator cuff arthropathy S/P Reverse Right total shoulder arthroplasty POD # 1 Biceps Tenodesis Post Op pain control, anticoagulation, Wound care, PT/OT per Orthopedics Monitor Hb for Post Anemia Bowel regimen to prevent constipation H/O Cerebrovascular disease 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 Encourage hydration DM II: A1C: 6.2 Start on ISS, Lantus Monitor Blood glucose Levels HTN: Stable Continue Losartan Hypothyroidism: Continue Levothyroxine H/O Prostate Cancer: HLD: Continue Fenofibrate DVT Px: aspirin Code Status: Full Code Vital Signs: Date Time Temp Pulse Resp B/P (MAP) Pulse Ox O2 Delivery O2 Flow Rate FiO2 07/24/17 15:13 36.7 72 16 169/62 (97) 95 Room Air 07/24/17 12:18 36.7 72 16 164/70 (101) 97 Room Air 07/24/17 07:25 Room Air 07/24/17 07:20 36.6 74 18 168/69 (102) 94 Room Air 07/24/17 02:24 36.7 72 16 163/66 (98) 94 Room Air 07/24/17 00:30 Room Air 07/23/17 22:50 36.6 81 18 165/68 (100) 94 Room Air 07/23/17 19:38 36.5 72 17 162/73 (102) 94 Room Air Lab Results: Results Past 24 Hours Test 07/23/17 20:17 07/24/17 02:19 07/24/17 06:07 07/24/17 08:19 Range/Units Bedside Glucose 260 189 174 70-99 mg/dl White Blood Count 7.85 4.8-10.8 K/uL Red Blood Count 3.12 4.7-6.1 M/uL Hemoglobin 10.4 14.0-18.0 g/dL Hematocrit 31.0 42-52 % Mean Corpuscular Volume 99.4 80-100 fL Mean Corpuscular Hemoglobin 33.3 25-34 pg Mean Corpuscular Hemoglobin Concent 33.5 32-36 g/dl RDW Standard Deviation 47.3 36.4-46.3 fL RDW Coefficient of Variation 13.2 11.5-14.5 % Platelet Count 165 130-400 K/uL Mean Platelet Volume 10.6 7.4-10.4 fL Sodium Level 138 136-145 mmol/L Potassium Level 4.3 3.5-5.1 mmol/L Chloride Level 105 98-107 mmol/L Carbon Dioxide Level 27 21-32 mmol/L Anion Gap 7.0 3-11 mmol/L Blood Urea Nitrogen 24 7-18 mg/dl Creatinine 1.49 0.60-1.40 mg/dl Est Creatinine Clear Calc Drug Dose 37.3 ml/min Estimated GFR () 49.2 Estimated GFR (Non- 42.5 BUN/Creatinine Ratio 16.2 10-20 Random Glucose 147 70-99 mg/dl Calcium Level 8.0 8.5-10.1 mg/dl Magnesium Level 2.0 1.8-2.4 mg/dl Test 07/24/17 12:07 Range/Units Bedside Glucose 184 70-99 mg/dl
[2017-07-24] MEDS: ROSUVASTATIN CALCIUM 20 MG TAB PO SCH (21:36)
[2017-07-25] MEDS: LEVOTHYROXINE 75 MCG TAB PO SCH (05:37)
[2017-07-25] MEDS: ACETAMINOPHEN 500 MG TAB PO SCH (05:38)
[2017-07-25 06:37] VITALS: BP 181/71; PULSE 84; TEMP 36.8; O2SAT 95
[2017-07-25 07:03] LABS: HEMATOCRIT 31.4 % (42-52); HEMOGLOBIN 10.3 g/dL (14.0-18.0); MEAN CELL VOLUME 99.4 fL (80-100); MEAN CORPUSCULAR HEMOGLOBIN 32.6 pg (25-34); MEAN CORPUSCULAR HGB CONC 32.8 g/dl (32-36); MEAN PLATELET VOLUME 10.6 fL (7.4-10.4); PLATELET COUNT 164 K/uL (130-400); RED CELL DISTRIBUTION WIDTH CV 13.2 % (11.5-14.5); RED CELL DISTRIBUTION WIDTH SD 47.4 fL (36.4-46.3); WHITE BLOOD COUNT 7.06 K/uL (4.8-10.8)
--- NOTE | 2017-07-25 07:12 | Orthopedic Progress Note ---
Orthopedic Progress Note Date of Service Jul 25, 2017. Subjective Post OP Day: 2 Reports: feeling well, pain controlled w PO medications, Denies: complaints, chest pain, SOB, nausea / vomiting, light headedness, calf pain Additional Notes: BP elevated. Objective N/V intact, capillary refill less than 2 sec., dressing C/D/I, incision C/D/I, A &O x3 sling in tact, fingers mobile Date Time Temp Pulse Resp B/P (MAP) Pulse Ox O2 Delivery O2 Flow Rate FiO2 07/25/17 06:37 36.8 84 18 181/71 (107) 95 Room Air 07/24/17 23:25 36.6 70 18 166/57 (93) 97 Room Air 07/24/17 23:15 Room Air 07/24/17 22:40 167/67 (100) 07/24/17 21:22 36.7 69 18 179/67 (104) 99 Room Air 07/24/17 15:45 95 Room Air 07/24/17 15:13 36.7 72 16 169/62 (97) 95 Room Air 07/24/17 12:18 36.7 72 16 164/70 (101) 97 Room Air 07/24/17 07:25 Room Air 07/24/17 07:20 36.6 74 18 168/69 (102) 94 Room Air Laboratory Results 24 Hours: Test 07/25/17 06:15 Hematocrit 31.4 % Hemoglobin 10.3 g/dL Assessment & Plan Assessment: POD #2 Right shoulder Reversed TSA, Biceps Tenodesis Plan: PT/ OT DVT proph- ASA D/C planning- Home w OPPT As per medicine Inhouse Planning Pain Management: Morphine, PO Tylenol, Oxy IR DVT Prophylaxis: SCDs, ASA Discharge Planning Discharge Planning: home with oppt Pain Management: PO Tylenol, Oxy IR DVT Prophylaxis: ASA
[2017-07-25] MEDS ORDERED: RXC5 PO (07:14)
[2017-07-25] MEDS ORDERED: ACET-24 PO (07:14)
--- NOTE | 2017-07-25 07:15 | Discharge Instructions ---
Discharge Instructions Date of Service Jul 25, 2017. Admission Reason for Admission: Right Rotator Cuff Arthropathy Discharge Discharge Diagnosis / Problem: Right reversed TSA, biceps tenodesis Discharge Goals Goal(s): Improve function Activity Recommendations Activity Limitations: as noted below . Instructions / Follow-Up Instructions / Follow-Up ACTIVITY RECOMMENDATIONS: SELF CARE INSTRUCTIONS AFTER TOTAL SHOULDER ARTHROPLASTY REVERSE A. You may do daily exercises as taught in physical therapy while in hospital. No lifting with the operative arm. B. You are to wear your sling/immobilizer at all times EXCEPT when performing your daily exercises and for hygiene purposes. C. You may perform dry, daily dressing changes. Please keep your incision covered. You may shower 48 hours after surgery. Do not apply soap or any ointment/ lotions directly over incision. Do not soak incision in bath tub/swimming pool. D. You may use ice as needed to operative shoulder. SPECIAL CARE INSTRUCTIONS: VERY IMPORTANT TO READ AND REVIEW A. There are a few signs you need to watch for after you are home. Call [facility] at [phone] if you experience any of the followin. Increased severe shoulder pain. Some pain is expected especially when you exercise. 2. Increased swelling in you shoulder or arm; pain or swelling in either upper extremity. 3. Any fluid drainage from the incision. 4. Shortness of breath or chest pain. B. Please call [facility] at [phone] if you have any questions or concerns about your operation or recovery. C. Call your physician if: 1. Temperature is greater than 101 degrees (F). 2. Pain is not relieved by prescribed pain medications. 3. Increase drainage or redness from incision. 4. Unanswered questions or concerns. FOLLOW UP VISIT: Please call [facility] at [phone] to schedule a follow up appointment with Dr. Mcbride or his PA in 12-14 days from your surgery date. Current Hospital Diet Patient's current hospital diet: Diabetes Type 2 Diet Discharge Diet Recommended Diet: Diabetes Type 2 Diet Procedures Procedures Performed: Reverse Right total shoulder arthroplasty; biceps tenodesis Pending Studies Studies pending at discharge: no Laboratory Results Hemoglobin A1c Test 06/26/17 12:09 Range/Units Estimated Average Glucose 131 mg/dl Hemoglobin A1c 6.2 H 4.5-5.6 % Medical Emergencies . Who to Call and When: Medical Emergencies: If at any time you feel your situation is an emergency, please call 911 immediately. . Non-Emergent Contact Non-Emergency issues call your: Primary Care Provider . "Provider Documentation" section prepared by Evan Lopez. . VTE Core Measure Inpt VTE Proph given/why not?: Other Anticoagulation (asa), SCD's [place] Drug Monitoring Program Search Results: patient reviewed within database, no issues identified
[2017-07-25 07:33] LABS: CALCIUM 8.2 mg/dl (8.5-10.1); CREATININE 1.44 mg/dl (0.60-1.40); POTASSIUM 4.5 mmol/L (3.5-5.1)
[2017-07-25] MEDS: LOSARTAN POTASSIUM 50 MG TAB PO SCH (07:42)
[2017-07-25] MEDS: CALCIUM 600MG + VIT D 400 IU TAB PO SCH (07:42)
[2017-07-25] MEDS: CHOLECALCIFEROL 1000 INTER.UNIT TAB PO SCH (07:42)
[2017-07-25] MEDS: FENOFIBRATE 48 MG TAB PO SCH (07:42)
[2017-07-25] MEDS: DOCUSATE SODIUM 100 MG CAP PO SCH (07:42)
[2017-07-25] MEDS: PANTOprazole SOD 40 MG TAB PO SCH (07:42)
[2017-07-25] MEDS: ASPIRIN 325 MG ECTAB PO SCH (07:42)
[2017-07-25] MEDS: MULTIVITAMIN TAB PO SCH (07:42)
[2017-07-25] MEDS: INSULIN ASPART 100 UNITS/ML 3 ML PEN SC SCH (07:48)
[2017-07-25] MEDS: INSULIN GLARGINE SOLOSTAR 100 UNITS/ML 3 ML PEN SC SCH (07:49)
[2017-07-25 09:31] VITALS: BP 145/63; PULSE 76; O2SAT 98
[2017-07-25 09:53] VITALS: BP 145/63; PULSE 76; TEMP 36.8; O2SAT 98
--- NOTE | 2017-07-25 10:42 | Consultant Recommendations ---
Manager Cardiology Recommendations Date of Service Jul 25, 2017. Manager Cardiology Recommendations Patient is : POD #2, Reverse Right total shoulder arthroplasty Subjective: patient denies pain. Exam: General: no acute distress Extremities: Right upper extremity in sling, wound drain is no longer present Heart: Regular rate Lungs: Clear to auscultation, no wheezing Plan/Recommendations Patient is being discharged by orthopedics service. Patient should follow up orthopedics if further post-op care needed and to follow with his primary care doctor for health issues CKD III with post-op elevations in creatinine, Diabetes Type II, Hypertension, Hypothyroidism , HLD, history of Cerebrovascular disease S/P Bleeding aneurysms , history of Prostate Cancer.
== END 2017-07-25 12:57 | disposition home or self-care (01) | DRG 483 ==
LOC: C.ACU 04:53 → C.3E 07:00 → ENRESERV 10:14
PROVIDERS: ADMIT Orthopaedic Surgery Sports Medicine; ATTEND Orthopaedic Surgery Sports Medicine
PROC: 0RRJ00Z Replacement of Right Shoulder Joint with Reverse Ball and Socket Synthetic Substitute, Open Approach (ICD-10-PCS; principal; 2017-07-23 07:00)
PROC: 0LM10ZZ Reattachment of Right Shoulder Tendon, Open Approach (ICD-10-PCS; principal; 2017-07-23 07:00)
DX: M75.101 Unspecified rotator cuff tear or rupture of right shoulder, not specified as traumatic (principal); I69.954 Hemiplegia and hemiparesis following unspecified cerebrovascular disease affecting left non-dominant side; N17.9 Acute kidney failure, unspecified; M75.81 Other shoulder lesions, right shoulder; E11.22 Type 2 diabetes mellitus with diabetic chronic kidney disease; N18.3 Chronic kidney disease, stage 3 (moderate); I12.9 Hypertensive chronic kidney disease with stage 1 through stage 4 chronic kidney disease, or unspecified chronic kidney disease; E78.00 Pure hypercholesterolemia, unspecified; E03.9 Hypothyroidism, unspecified; G47.30 Sleep apnea, unspecified; Z79.4 Long term (current) use of insulin; Z79.82 Long term (current) use of aspirin; Z79.899 Other long term (current) drug therapy; Z85.46 Personal history of malignant neoplasm of prostate

== ENCOUNTER 2020-03-24 11:49 | Observation (INO) ==
[2020-03-24] MEDS ORDERED: ASPIRIN CHEW 324 MG PO STA (12:43)
[2020-03-24] MEDS ORDERED: ALUMINUM/MAGNESIUM SUSP 30 ML UDC PO STA (12:43)
[2020-03-24] MEDS ORDERED: PANTOprazole 40 MG TAB PO STA (12:43)
[2020-03-24 12:53] LABS: Basophils # (auto) 0.02 K/uL (0-0.2); Basophils % (auto) 0.4 %; Eosinophils # (auto) 0.17 K/uL (0-0.5); Eosinophils % (auto) 3.3 %; Hematocrit (blood only) 34.8 % (42-52); Hemoglobin 11.3 g/dL (14.0-18.0); Immature Granulocytes # (auto) 0.03 K/uL (0.00-0.02); Immature Granulocytes % (auto) 0.6 %; Lymphocytes # (auto) 1.05 K/uL (1.2-3.4); Lymphocytes % (auto) 20.5 %; Mean Corpuscular Hemoglobin 32.8 pg (25-34); Mean Corpuscular Hgb Conc 32.5 g/dL (32-36); Mean Corpuscular Volume 101.2 fL (80-100); Mean Platelet Volume 10.7 fL (7.4-10.4); Monocytes % (auto) 15.6 %; Neutrophils # (auto) 3.05 K/uL (1.4-6.5); Neutrophils % (auto) 59.6 %; Platelet Count 213 K/uL (130-400); RDW Coefficient of Variation 13.4 % (11.5-14.5); RDW Standard Deviation 49.3 fL (36.4-46.3); Red Blood Count 3.44 M/uL (4.7-6.1); White Blood Count 5.12 K/uL (4.8-10.8)
--- NOTE | 2020-03-24 12:57 | Emergency Department Note ---
Impression & Plan Chest pain, Abnormal EKG, Elevated troponin I level ED Provider Note NAME: VIVEK COLLIER AGE: 89 SEX: M : 1930 ARRIVES VIA: Walk-In INFORMANT: Patient, ED PROVIDER(S): Live Rogers DO CHIEF COMPLAINT: Chest pain HPI: The patient is an 89-year-old male who is been experiencing chest pain for the last few months. He states the pain is anterior intermittent. Currently has no pain. He called his primary radio message router and was sent to the emergency department for further evaluation. The patient has a history of aortic stenosis. He has never had a cardiac catheterization or stress test as far as he can remember. He does have a history of echocardiograms. The patient states the pain is worsened at night. Sometimes worsened with food. He does take antacids with some relief of his pain. He denies having any fever or cough. He has had no lower extremity swelling. He does not complain of specific shortness of breath or dyspnea on exertion. The patient is often seen by his primary care physician for these complaints. ROS: See above HPI for pertinent positives & negatives. A total of 10 systems reviewed and were otherwise negative. PAST MEDICAL HISTORY: See Below PAST SURGICAL HISTORY: See Below FAMILY HISTORY: See Below SOCIAL HISTORY: See Below HOME MEDICATIONS: See Below ALLERGIES: See Below VITALS: See Below PHYSICAL EXAMINATION: GENERAL: Patient is awake alert in no acute distress patient is resting comfortably and showing no signs of anxiety EYES: The conjunctivae are clear. The right pupil is irregular and postsurgical. EARS, NOSE, MOUTH AND THROAT: The nose is without any evidence of any deformity. NECK: The neck is nontender and supple. RESPIRATORY: Diminished breath sounds are noted in the right lung field. There were rales at the right base. There was no tachypnea or conversational dyspnea. CARDIOVASCULAR: Regular rate and rhythm was noted to auscultation. Systolic murmur was suggested. GASTROINTESTINAL: The abdomen is soft. Abdomen is nontender. MUSCULOSKELETAL/EXTREMITIES: There is no evidence of gross deformity full range of motion is noted in the hips and shoulders. SKIN: There is no obvious evidence of any rash. There are no petechiae, pallor or cyanosis noted. NEUROLOGIC: Patient is awake alert and oriented x3 strength is symmetric patellar reflexes are 2+ bilaterally MEDICAL DECISION MAKING: The patient is an 89-year-old male who presented to the emergency department for an evaluation of chest pain. The patient describes very atypical chest pain which was worsened at night and sometimes with food although he does have a history of aortic stenosis. Some of his symptoms were related to exertion. He called his primary radio message router and was sent to the emergency department for further evaluation. The patient was found to have an abnormal EKG with an elevated troponin. He was treated with aspirin in the emergency department. I discussed the patient's laboratory and radiographic studies with him. I also discussed the limitations of the emergency department work-up for chest pain with him. Ultimately given the patient's findings in the ER I do feel he would be a better candidate for inpatient work-up. For this reason [facility] to evaluate the patient in the emergency department for further management and disposition. Triage Nursing notes reviewed. Prior medical records reviewed Vital Signs: reviewed and remarkable for elevated blood pressure. Differential diagnosis: Cardiac ischemia, aortic dissection, pulmonary embolism, pneumothorax, pneumonia, pericarditis, myocarditis, esophageal rupture, GERD, cholecystitis, pancreatitis, musculoskeletal, as well as other pathologies. ER treatment provided: See below Diagnostics interpreted by me: ECG: EKG was obtained in the emergency department. My interpretation is normal sinus rhythm at 76 bpm. PVCs were noted. LVH was noted by voltage criteria. Low lateral and inferior ST depressions were noted. This was compared to a tracing from June 262017. The ST segment depressions are new compared to the previous tracing. Cardiac Monitoring: An order was placed for continuous cardiac monitoring. The monitor shows a rate of with rhythm. Laboratory studies: As stated above and show below. Imaging studies: See below Consultation(s): 1345: I discussed this case with Julia [facility] will evaluate the patient in the emergency department for further management and disposition. 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 History of colonoscopy History of cystoscopy History of detached retina repair left eye History of endoscopic sinus surgery History of esophagogastroduodenoscopy (EGD) History of eye surgery left eye "gas bubble placed after detached retina repair" History of left shoulder replacement History of prostate biopsy malignant History of prostate surgery brachytherapy History of right shoulder replacement History of tooth extraction all teeth removed Hx of vasectomy Family History Mother Family history of diabetes mellitus Brother Family history of diabetes mellitus Prostate cancer Other Diabetes Hypertension No family history of adverse response to anesthesia Social History Smoking Status: Former smoker Second Hand Exposure: Yes (hx of); Hx Alcohol Use: Yes Alcohol type: wine Hx Substance Use: No Preferred Language: Belgian Communication Ability: Effective 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 Beliefs That Will Affect Care: None Current Living Situation: Spouse Feels Safe at Home: Yes Assistive Devices: Denture - Upper, Denture - Lower, Glasses and Hearing Aid - Bilateral Allergies Allergies Allergy/AdvReac Type Severity Reaction Status Date / Time No Known Allergies Allergy Verified 11/25/19 12:47 Home Meds Home Medications Medication Instructions Recorded Confirmed cholecalciferol (vitamin D3) 25 1,000 unit PO QAM tab 01/30/19 11/25/19 mcg (1,000 unit) tablet folic acid 1 mg tablet 1 mg PO QAM tab 01/30/19 11/25/19 losartan 50 mg tablet 50 mg PO QAM tab 01/30/19 11/25/19 Novolin N NPH U-100 Insulin 18 unit SUBCUT QAM 03/24/19 11/25/19 Novolin N NPH U-100 Insulin 35 unit SUBCUT QPM 03/24/19 11/25/19 Novolin R Regular U-100 Insuln 17 unit SUBCUT QAM 03/24/19 11/25/19 aspirin 81 mg PO QAM 03/24/19 11/25/19 calcium citrate-vitamin D3 1 tab PO QAM 03/24/19 11/25/19 [Citracal-D3 Petites] cyanocobalamin (vitamin B-12) 1,000 mcg PO QAM 03/24/19 11/25/19 [Vitamin B-12] fenofibrate nanocrystallized 48 mg PO QAM 03/24/19 11/25/19 levothyroxine 75 mcg PO QAM 03/24/19 11/25/19 meclizine 25 mg PO TID PRN 03/24/19 11/25/19 rosuvastatin 20 mg PO HS 03/24/19 11/25/19 omeprazole 20 mg PO BID 04/08/19 11/25/19 Results & Data (ED) Vital Signs Vital Signs - 24 hr 03/24/20 12:00 03/24/20 12:43 Temperature 37.0 C Temperature Source Oral Pulse Rate 71 Respiratory Rate 20 Respiratory Effort / Characteristics Non-Labored Spontaneous Respiratory Depth Normal Respiratory Pattern Regular Blood Pressure 174/61 H Blood Pressure Mean 98 Blood Pressure Position Lying Pulse Oximetry 97 98 Oxygen Delivery Method Room Air Room Air Sepsis Recent Fever Within 48 Hours No Sepsis New/Unexplained Change in Mental Status No Sepsis Action Taken by Nursing No Action Required Home Medications Current Medication List: was personally reviewed by me Laboratory Data Attestation: I reviewed the patient's lab results. Result diagrams: 03/24/20 12:27 03/24/20 12:27 Lab Results 03/24/20 03/24/20 03/24/20 Range/Units 12:27 12:27 12:27 WBC 5.12 (4.8-10.8) K/uL RBC 3.44 L (4.7-6.1) M/uL Hgb 11.3 L (14.0-18.0) g/dL Hct 34.8 L (42-52) % MCV 101.2 H (80-100) fL MCH 32.8 (25-34) pg MCHC 32.5 (32-36) g/dL RDW Std Deviation 49.3 H (36.4-46.3) fL RDW Coeff of Marissa 13.4 (11.5-14.5) % Plt Count 213 (130-400) K/uL MPV 10.7 H (7.4-10.4) fL Immature Gran % (Auto) 0.6 % Neut % (Auto) 59.6 % Lymph % (Auto) 20.5 % [place] % (Auto) 15.6 % Eos % (Auto) 3.3 % Baso % (Auto) 0.4 % Neut # (Auto) 3.05 (1.4-6.5) K/uL Lymph # (Auto) 1.05 L (1.2-3.4) K/uL [place] # (Auto) 0.80 H (0.11-0.59) K/uL Eos # (Auto) 0.17 (0-0.5) K/uL Baso # (Auto) 0.02 (0-0.2) K/uL Immature Gran # (Auto) 0.03 H (0.00-0.02) K/uL PT 11.3 (9.0-12.0) Seconds INR 1.1 (0.9-1.1) APTT 24.6 (21.0-31.0) Seconds PTT Ratio 0.9 Sodium 139 (136-145) mmol/L Potassium 4.5 (3.5-5.1) mmol/L Chloride 108 H (98-107) mmol/L Carbon Dioxide 28 (21-32) mmol/L Anion Gap 3.0 (3-11) BUN 29 H (7-18) mg/dl Creatinine 1.77 H (0.6-1.4) mg/dl Est Cr Clr Drug Dosing 30.4 ml/min Est GFR ( Amer) 39.2 Est GFR (Non-Af Amer) 33.8 BUN/Creatinine Ratio 16.6 (10-20) Glucose 120 H (70-99) mg/dl Calcium 9.2 (8.5-10.1) mg/dl Total Bilirubin 0.5 (0.2-1) mg/dl AST 30 (15-37) U/L ALT 16 (12-78) U/L Alkaline Phosphatase 55 (45-117) U/L Troponin I 0.070 H* (0-0.045) ng/ml Total Protein 7.1 (6.4-8.2) gm/dl Albumin 3.7 (3.4-5.0) gm/dl Globulin 3.4 (2.5-4.0) gm/dl Albumin/Globulin Ratio 1.1 (0.9-2) Lipase 127 (73-393) U/L Administered Medications Discontinued Medications Al Hydrox/Mg Hydrox/Simethicone (Aluminum/Magnesium Susp 30 Ml Udc) 30 ml PO NOW STA Stop: 03/24/20 12:44 Last Admin: 03/24/20 13:26 Dose: 30 ml Documented by: [id number] Aspirin (Aspirin Chew 324 Mg) 324 mg PO NOW STA Stop: 03/24/20 12:44 Last Admin: 03/24/20 13:26 Dose: 324 mg Documented by: [id number] Pantoprazole Sodium (Pantoprazole 40 Mg Tab) 40 mg PO NOW STA Stop: 03/24/20 12:44 Last Admin: 03/24/20 13:26 Dose: 40 mg Documented by: [id number] Imaging Data Radiologist's Impression: Patient: VIVEK COLLIER Admit Date: 03/24/20 MR#: [id number] Address[address]: [address] Acct ID:[id number] Address2: Date: 1930 [facility] Zip: [place] [id number] Age: 89 Location: ED Sex: M Room/Bed: Att Phy: Diagnosis: CHEST PAIN [place] Phy: Xavier Olivo MD Service Date: 03/24/20 Fam Phy: Interpreting Phy: Dawson Wilder MD Admit Phy: Ordering Phy: Live Rogers DO cc: ~ SINGLE VIEW CHEST CLINICAL HISTORY: Atypical chest pain. FINDINGS: An AP, portable, upright chest radiograph is compared to study dated 06/26/2017. The heart is enlarged noting atherosclerotic calcification of the thoracic aorta. The pulmonary vasculature is noncongested. Changes of chronic interstitial lung disease are similar to previous. There is no evidence of superimposed airspace consolidation or large pleural effusion. Foci of parenchyma scarring are seen throughout both lungs. No pneumothorax is seen. The skeletal structures are osteopenic. The bony thorax is grossly intact. Bilateral shoulder arthroplasties are in place. IMPRESSION: Cardiomegaly and chronic parenchymal changes as above with no acute cardiopulmonary abnormality identified. ACT 112: Negative or not required by law. Electronically signed by: Dawson Wilder M.D. 03/24/2020 1:20 PM Dictated: 03/24/208 Transcribed: 03/24/208 Blood Pressure Blood Pressure Findings: Elevated blood pressure Blood Pressure Disposition: further management by hospitalist Discharge Plan Visit Data Chief Complaint: Chest Pain Stated Complaint: CHEST PAIN ED Provider: Live Rogers Discharge Problem: Chest pain, Abnormal EKG, Elevated troponin I level Patient Disposition: Being Evaluated by Hospitalist Condition: Good Forms Stand Alone Forms: My [facility] Prescriptions Prescriptions: No Action cholecalciferol (vitamin D3) 1,000 unit (25 mcg) tablet 1,000 unit PO QAM RF: 0 losartan 50 mg tablet 50 mg PO QAM RF: 0 folic acid 1 mg tablet 1 mg PO QAM RF: 0 cyanocobalamin (vitamin B-12) [Vitamin B-12] 1,000 mcg Tablet 1,000 mcg PO QAM RF: 0 aspirin 81 mg Tablet,Delayed Release (Dr/Ec) 81 mg PO QAM RF: 0 levothyroxine 75 mcg Tablet 75 mcg PO QAM RF: 0 meclizine 25 mg Tablet 25 mg PO TID PRN (Reason: Dizziness) RF: 0 Novolin R Regular U-100 Insuln 100 unit/mL Solution 17 unit SUBCUT QAM RF: 0 Novolin N NPH U-100 Insulin 100 unit/mL Suspension 18 unit SUBCUT QAM RF: 0 Novolin N NPH U-100 Insulin 100 unit/mL Suspension 35 unit SUBCUT QPM RF: 0 rosuvastatin 20 mg Tablet 20 mg PO HS RF: 0 fenofibrate nanocrystallized 48 mg Tablet 48 mg PO QAM RF: 0 calcium citrate-vitamin D3 [Citracal-D3 Petites] 200 mg calcium -250 unit Tablet 1 tab PO QAM RF: 0 omeprazole 20 mg Capsule,Delayed Release(Dr/Ec) 20 mg PO BID RF: 0 Referrals Referrals: Xavier Olivo MD [Primary Care Provider] -
[2020-03-24 13:00] LABS: Albumin Level 3.7 gm/dl (3.4-5.0); BUN Creatinine Ratio 16.6 (10-20); Calcium 9.2 mg/dl (8.5-10.1); Creatinine Clr Calc Pharmacy 30.4 ml/min; Est GFR (African American) 39.2; Est GFR (Non-African American) 33.8; Potassium 4.5 mmol/L (3.5-5.1)
[2020-03-24 13:02] LABS: INR 1.1 (0.9-1.1); Partial Thromboplastin Ratio 0.9; Partial Thromboplastin Time 24.6 Seconds (21.0-31.0); Prothrombin Time 11.3 Seconds (9.0-12.0)
[2020-03-24 13:20] LABS: Albumin Globulin Ratio 1.1 (0.9-2); Bilirubin,Total 0.5 mg/dl (0.2-1); Globulin 3.4 gm/dl (2.5-4.0); Total Protein 7.1 gm/dl (6.4-8.2); Troponin I 0.07 ng/ml (0-0.045)
--- NOTE | 2020-03-24 13:22 | XRay Report ---
SINGLE VIEW CHEST CLINICAL HISTORY: Atypical chest pain. FINDINGS: An AP, portable, upright chest radiograph is compared to study dated 06/26/2017. The heart i s enlarged noting atherosclerotic calcification of the thoracic aorta. The pulmonary vasculature is n oncongested. Changes of chronic interstitial lung disease are similar to previous. There is no eviden ce of superimposed airspace consolidation or large pleural effusion. Foci of parenchyma scarring are seen throughout both lungs. No pneumothorax is seen. The skeletal structures are osteopenic. The bony thorax is grossly intact. Bilateral shoulder arthroplasties are in place. IMPRESSION: Cardiomegaly and chronic parenchymal changes as above with no acute cardiopulmonary abnor mality identified. ACT 112: Negative or not required by law. Electronically signed by: Dawson Wilder M.D. 03/24/2020 1:20 PM
--- NOTE | 2020-03-24 13:35 | Electrocardiogram Report ---
Test Reason : Blood Pressure : / mmHG Vent. Rate : 076 BPM Atrial Rate : 076 BPM P-R Int : 288 ms QRS Dur : 092 ms QT Int : 384 ms P-R-T Axes : 043 -10 -46 degrees QTc Int : 432 ms Sinus rhythm with 1st degree A-V block with occasional Premature ventricular complexes Minimal voltage criteria for LVH, may be normal variant Diffuse Minor Nonspecific ST and T wave abnormality Abnormal ECG When compared with ECG of 26-JUN-2017 12:03, Premature ventricular complexes are now Present Nonspecific T wave abnormality now present QT has lengthened Confirmed by Anthony Portillo ([id number]) on 03/24/2020 1:34:29 PM Referred By: ED Confirmed By:Anthony Portillo
--- NOTE | 2020-03-24 14:54 | History & Physical Report ---
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 History sounds consistent with GI etiology including hiatal hernia/gerd/gastritis Elevated troponin with t wave changes laterally compared to prior ecg 06/2017 - elevated trop possibly 2/2 to CKD vs - but will work up ACS admit to med tele cycle troponin, ecg - pt currently chest pain free repeat echo - last echo 01/28/20 EF 55% with Severe Currently on omeprazole 20mg bid - will add pepcid 20mg bid with emphasis on evening dose to prevent HH sx while lying flat recommend HOB elevated when sleeping consult cardiology due to elevated trop and hx of severe If worsens and ACS/cardiac source ruled out would recommend follow up with GI as outpt as he is due for repeat EGD (last 08/2019 and recommend f/u was 6 months) (5) IDDM (insulin dependent diabetes mellitus): Well-controlled, last A1c 12/12/2019 was 6.1 Continue Novolin (6) HTN (hypertension): Blood pressure elevated in ED, possibly situational Continue losartan Monitor (7) HLD (hyperlipidemia): Continue statin Last cholesterol panel 12/20/2019 revealed total cholesterol 135, HDL 39, LDL 72 (8) CKD (chronic kidney disease), stage III: Baseline creatinine 1.7 BUN/creatinine stable today at 29 and 1.77 Monitor renal function, avoid nephrotoxic agents (9) Hypothyroidism: Continue levothyroxine (10) BPH (benign prostatic hyperplasia): continue afluzosin (11) DVT prophylaxis: SQ Heparin Disposition: admit to med tele Follow up: PCP Dr. Olivo upon discharge, would also recommend follow up with [facility] GI for HH and pt is due for repeat EGD from 08/2019 (recommendation was 6 month follow up) Pt was seen and examined in collaboration with Dr. Dejesus, please see addendum History of Present Illness Chief Complaint: CP off and on x several weeks. 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 His is at bedside. He admits over the last several weeks having worsening chest pain, substernal, described as burning and indigestion that occurs mostly when he is lying flat at night. It does not occur every night, but came on last evening and was very severe. He states typically he will sit straight up and go out and take Pepto-Bismol. After remaining upright and take Pepto-Bismol his symptoms usually improve and he is able to return to bed. He states currently he is asymptomatic especially after receiving pantoprazole in ED. He denies any diaphoresis, nausea, palpitations or shortness of breath with the evening episodes. He called into cardiology office today who recommended he seek ED for further evaluation. For 89 he is very active still works in his yard and goes hunting. He states over the last several weeks he has noticed worsening chest discomfort with exertion that is substernal and nonradiating. Typically he would sit down and it would resolve in 1 to 2 minutes. It is now taking approximately 5 minutes to resolve. He states this is the same pain that he feels in the evening as well. Again these episodes are not accompanied with diaphoresis, palpitations, ARCE, S OB or nausea. Currently he feels well and wishes he could go hunting tomorrow. He denies any fever, chills, sweats, lightheadedness, dizziness, syncope, cough, hemoptysis, nausea, vomit, abdominal pain, change in bowel or urinary habits. He does not occasionally get black stool but daily but this typically is after he takes Pepto-Bismol. Patient does follow [facility] cardiology and is being followed in regards to his severe aortic stenosis. Plan is to meet with valve clinic to possibly undergo surgery in future. His last echocardiogram was 01/28/2020 which revealed EF 55% and severe calcified aortic valve. 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 His last EGD was August/2019 with recommended repeat in 6 months. In ED patient remained hemodynamically stable. He was mildly hypertensive at 174/61. Lab work notable for H&H 11.3 and 34.8, to BC 1.52, platelet 213, BUN 29, creatinine 1.77, glucose 120, troponin 0.070. Chest x-ray with cardiomegaly and chronic parenchymal changes but no acute cardiopulmonary abnormality. EKG revealed 76 bpm normal sinus rhythm, first-degree AV block with PVC. He did have some nonspecific ST changes laterally. Allergies Allergy/AdvReac Type Severity Reaction Status Date / Time atorvastatin [From Lipitor] AdvReac Intermediate muscle pain Verified 03/24/20 13:51 Home Medications Home Medications Medication Instructions Recorded Confirmed Type cholecalciferol (vitamin D3) 25 1,000 unit PO QAM tab 01/30/19 11/25/19 History mcg (1,000 unit) tablet folic acid 1 mg tablet 1 mg PO QAM tab 01/30/19 11/25/19 History losartan 50 mg tablet 50 mg PO QAM tab 01/30/19 11/25/19 History Novolin N NPH U-100 Insulin 18 unit SUBCUT QAM 03/24/19 11/25/19 History Novolin N NPH U-100 Insulin 35 unit SUBCUT QPM 03/24/19 11/25/19 History Novolin R Regular U-100 Insuln 17 unit SUBCUT QAM 03/24/19 11/25/19 History aspirin 81 mg PO QAM 03/24/19 11/25/19 History calcium citrate-vitamin D3 1 tab PO QAM 03/24/19 11/25/19 History [Citracal-D3 Petites] cyanocobalamin (vitamin B-12) 1,000 mcg PO QAM 03/24/19 11/25/19 History [Vitamin B-12] fenofibrate nanocrystallized 48 mg PO QAM 03/24/19 11/25/19 History levothyroxine 75 mcg PO QAM 03/24/19 11/25/19 History meclizine 25 mg PO TID PRN 03/24/19 11/25/19 History rosuvastatin 20 mg PO HS 03/24/19 11/25/19 History omeprazole 20 mg PO BID 04/08/19 11/25/19 History 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 History of colonoscopy History of cystoscopy History of detached retina repair left eye History of endoscopic sinus surgery History of esophagogastroduodenoscopy (EGD) History of eye surgery left eye "gas bubble placed after detached retina repair" History of left shoulder replacement History of prostate biopsy malignant History of prostate surgery brachytherapy History of right shoulder replacement History of tooth extraction all teeth removed Hx of vasectomy Family History Mother Family history of diabetes mellitus Brother Family history of diabetes mellitus Prostate cancer Other Diabetes Hypertension No family history of adverse response to anesthesia Social History (Updated 03/24/20 @ 14:38 by Julia Johnson PA-C) Smoking Status: Former smoker Tobacco Type: Pipe Years Smoked: 45; Second Hand Exposure: Yes (hx of); Hx Alcohol Use: No Hx Substance Use: No Preferred Language: Australian Communication Ability: Effective Waterway Traffic Checker Required: No Beliefs That Will Affect Care: None marital status: Current Living Situation: Spouse Feels Safe at Home: Yes Assistive Devices: Denture - Upper, Denture - Lower, Glasses and Hearing Aid - Bilateral Review of Systems Review of Systems: All systems reviewed & are unremarkable except as noted in HPI & below Physical Exam Physical Exam: Constitutional: WD/WN, male, appears younger than stated age, vitals as above, NAD, sitting up in bed, pleasant, conversing easily Head: Normocephalic, Atraumatic Eyes: Right pupil greater than left pupil, normal per patient secondary to left detached retina, conjunctivae normal, anicteric sclerae ENMT: external ear and nose normal, oropharynx normal Neck: trachea midline, no thyromegaly normal visual inspection Respiratory: normal respiratory effort, lungs clear to auscultation, no wheeze, rales, rhonchi. Normal insp/exp effort, no accessory muscle use Cardiovascular: RRR, 2/6 MILAGRO noted precordially, best RUSB with radiation to carotids, no edema Vessels: no JVD or carotid bruit Chest: normal inspection of chest, no reproducible chest pain Abdomen: normal bowel sounds, soft, nontender, no hepatosplenomegaly Musculoskeletal: no cyanosis or clubbing, extremities motor strength 5/5 Skin: multiple SK noted on posterior thorax, no rashes, warm and dry normal turgor Neurologic: no face palsy, no dysarthria CN's II-XI intact bilaterally and moves all extremities Psychiatric: A+Ox3, euthymic affect Lymphatic: no cervical or axillary lymphadenopathy : deferred Results & Data Results & Data ([facility]) Vital Signs (Past 12 Hours) Vital Signs Temp Pulse Resp BP Pulse Ox 03/24/20 12:43 98 03/24/20 12:00 37.0 C 71 20 174/61 H 97 Laboratory Results Short CBC 03/24/20 03/24/20 Range/Units 12:27 12:27 WBC 5.12 (4.8-10.8) K/uL Hgb 11.3 L (14.0-18.0) g/dL Hct 34.8 L (42-52) % Plt Count 213 (130-400) K/uL Creatinine 1.77 H (0.6-1.4) mg/dl Troponin I 0.070 H* (0-0.045) ng/ml BMP 03/24/20 12:27 Sodium 139 Potassium 4.5 Chloride 108 H Carbon Dioxide 28 BUN 29 H Creatinine 1.77 H Glucose 120 H Calcium 9.2 Cardiac Enzymes 03/24/20 Range/Units 12:27 Troponin I 0.070 H* (0-0.045) ng/ml Liver Function 03/24/20 Range/Units 12:27 Total Bilirubin 0.5 (0.2-1) mg/dl AST 30 (15-37) U/L ALT 16 (12-78) U/L Alkaline Phosphatase 55 (45-117) U/L Albumin 3.7 (3.4-5.0) gm/dl Diagnostic Findings CXR: IMPRESSION: Cardiomegaly and chronic parenchymal changes as above with no acute cardiopulmonary abnormality identified. Medications Administered Discontinued Medications Al Hydrox/Mg Hydrox/Simethicone (Aluminum/Magnesium Susp 30 Ml Udc) 30 ml PO NOW STA Stop: 03/24/20 12:44 Last Admin: 03/24/20 13:26 Dose: 30 ml Documented by: [id number] Aspirin (Aspirin Chew 324 Mg) 324 mg PO NOW STA Stop: 03/24/20 12:44 Last Admin: 03/24/20 13:26 Dose: 324 mg Documented by: [id number] Pantoprazole Sodium (Pantoprazole 40 Mg Tab) 40 mg PO NOW STA Stop: 03/24/20 12:44 Last Admin: 03/24/20 13:26 Dose: 40 mg Documented by: [id number] ECG Rate (beats per minute): 76 Rhythm: normal sinus Findings: + 1st degree AV block, + nonspecific-ST abn and + PVC Comparison ECG Date: from (06/2017) Change: the following changes noted Additional Comments: t waves flattened laterally Code Status & VTE Plan Code Status Full Code VTE Prophylaxis Plan VTE Prophylaxis will be ordered: Yes (1) Chest pain Chest pain type: unspecified Qualified Code(s): R07.9 - Chest pain, unspecified
[2020-03-24] MEDS ORDERED: ONDANSETRON INJ 2 MG/ML 2 ML VIAL IV PRN (15:56)
[2020-03-24] MEDS ORDERED: ACETAMINOPHEN 325 MG TAB PO PRN (15:56)
[2020-03-24] MEDS ORDERED: GLUCOSE 10 TABS/TUBE PO PRN (15:56)
[2020-03-24] MEDS ORDERED: ALUMINUM/MAGNESIUM SUSP 30 ML UDC PO PRN (15:56)
[2020-03-24] MEDS ORDERED: DEXTROSE 50% 50 ML SYRINGE IV PRN (15:56)
[2020-03-24] MEDS ORDERED: POLYETHYLENE (MIRALAX) 17 GM PACK PO PRN (15:56)
[2020-03-24] MEDS ORDERED: GLUCAGON FOR INJ 1 MG VIAL SQ PRN (15:56)
[2020-03-24] MEDS ORDERED: GLUCOSE 40% GEL 15 GM TUBE PO PRN (15:56)
[2020-03-24] MEDS ORDERED: CARBOHYDRATES FOR HYPOGLYCEMIA PO PRN (15:56)
[2020-03-24] MEDS: INSULIN HUMAN NPH SC SCH (17:41)
[2020-03-24] MEDS: INSULIN ASPART 100 UNITS/ML 3 ML PEN SC SCH ×2 (17:42→20:30)
[2020-03-24] MEDS: HEPARIN SOD 5,000 UNIT/0.5 ML VIAL SQ SCH ×2 (17:43→20:26)
[2020-03-24 18:36] LABS: Magnesium 2.2 mg/dl (1.8-2.4); Troponin I 0.061 ng/ml (0-0.045)
[2020-03-24] MEDS: PANTOprazole 40 MG TAB PO SCH (20:26)
[2020-03-24] MEDS: FAMOTIDINE 20 MG TAB PO SCH (20:29)
[2020-03-24] MEDS ORDERED: ROSUVASTATIN CALCIUM 20 MG TAB PO SCH (21:00)
[2020-03-24] MEDS ORDERED: MELATONIN 3 MG TAB PO PRN (21:55)
[2020-03-25] MEDS: HEPARIN SOD 5,000 UNIT/0.5 ML VIAL SQ SCH ×2 (05:59→14:10)
[2020-03-25 06:02] LABS: Hemoglobin 10.5 g/dL (14.0-18.0); Mean Corpuscular Hemoglobin 32.4 pg (25-34); Mean Corpuscular Hgb Conc 31.8 g/dL (32-36); Mean Corpuscular Volume 101.9 fL (80-100); Mean Platelet Volume 10.5 fL (7.4-10.4); Platelet Count 184 K/uL (130-400); RDW Coefficient of Variation 13.3 % (11.5-14.5); RDW Standard Deviation 48.5 fL (36.4-46.3); Red Blood Count 3.24 M/uL (4.7-6.1); White Blood Count 4.82 K/uL (4.8-10.8)
[2020-03-25 06:19] LABS: Estimated Average Glucose 123 mg/dl; Hemoglobin A1C 5.9 % (4.5-5.6)
[2020-03-25 06:28] LABS: BUN Creatinine Ratio 15.8 (10-20); Calcium 8.3 mg/dl (8.5-10.1); Creatinine Clr Calc Pharmacy 29.4 ml/min; Est GFR (African American) 38.4; Est GFR (Non-African American) 33.1; Potassium 4.5 mmol/L (3.5-5.1)
[2020-03-25] MEDS ORDERED: LEVOTHYROXINE SODIUM 75 MCG TABLET PO SCH (06:30)
[2020-03-25] MEDS: FAMOTIDINE 20 MG TAB PO SCH (08:04)
[2020-03-25] MEDS: PANTOprazole 40 MG TAB PO SCH (08:05)
[2020-03-25] MEDS: INSULIN ASPART 100 UNITS/ML 3 ML PEN SC SCH ×3 (08:06→16:47)
[2020-03-25] MEDS ORDERED: CALCIUM 600MG + VIT D 400 IU TAB PO SCH (09:00)
[2020-03-25] MEDS ORDERED: CHOLECALCIFEROL 1,000 UNITS 25 MCG TAB PO SCH (09:00)
[2020-03-25] MEDS ORDERED: LOSARTAN POTASSIUM 50 MG TAB PO SCH (09:00)
[2020-03-25] MEDS ORDERED: CYANOCOBALAMIN 500 MCG TABLET (VITAMIN B-12) PO SCH (09:00)
[2020-03-25] MEDS ORDERED: INSULIN HUMAN NPH SC SCH (09:00)
[2020-03-25] MEDS ORDERED: ASPIRIN 81 MG ECTAB PO SCH (09:00)
[2020-03-25] MEDS ORDERED: NovoLIN-R INSULIN PER UNIT CHARGE SQ SCH (09:00)
[2020-03-25] MEDS ORDERED: FOLIC ACID 1 MG TAB PO SCH (09:00)
[2020-03-25] MEDS ORDERED: FENOFIBRATE NANOCRYSTALLIZED 48 MG TABLET PO SCH (09:00)
--- NOTE | 2020-03-25 09:06 | Electrocardiogram Report ---
Test Reason : Blood Pressure : / mmHG Vent. Rate : 063 BPM Atrial Rate : 063 BPM P-R Int : 296 ms QRS Dur : 084 ms QT Int : 398 ms P-R-T Axes : 027 -03 230 degrees QTc Int : 407 ms Sinus rhythm with 1st degree A-V block Voltage criteria for left ventricular hypertrophy Diffuse Nonspecific T wave abnormality Abnormal ECG When compared with ECG of 24-MAR-2020 16:00, Premature ventricular complexes no longer present Confirmed by Anthony Portillo ([id number]) on 03/25/2020 9:06:43 AM Referred By: REFERRED SELF Confirmed By:Anthony Portillo
--- NOTE | 2020-03-25 09:08 | Electrocardiogram Report ---
Test Reason : Blood Pressure : / mmHG Vent. Rate : 064 BPM Atrial Rate : 064 BPM P-R Int : 296 ms QRS Dur : 092 ms QT Int : 408 ms P-R-T Axes : 020 -08 270 degrees QTc Int : 420 ms Sinus rhythm with 1st degree A-V block Minimal voltage criteria for LVH, may be normal variant Nonspecific ST and T wave abnormality Abnormal ECG When compared with ECG of 24-MAR-2020 12:05, Premature ventricular complexes are no longer Present Confirmed by Anthony Portillo ([id number]) on 03/25/2020 9:07:59 AM Referred By: REFERRED SELF Confirmed By:Anthony Portillo
--- NOTE | 2020-03-25 14:10 | Cardiology Consultation ---
Date of Consultation March 25, 2020 Assessment & Plan (1) Chest pain: (2) Severe aortic stenosis: (3) Elevated troponin I level: Complex 89-year-old patient presents to the emergency department with atypical chest discomfort. Symptoms appear consistent with GI etiology. Denies exertio nal chest pain or unusual shortness of breath at this time. His troponins are minimally elevated,and flat. I suspect related to underlying renal insufficiency, hypertension, and severe aortic stenosis with left ventricular hypertrophy. Patient is feeling better today, ambulating without exertional symptoms. No sustained dysrhythmias on telemetry. I discussed the natural history and pathophysiology of severe aortic valve stenosis. Patient is interested in pursuing evaluation for TAVR in the future. I will arrange for outpatient follow-up with his senior benefits analyst. Patient is scheduled for [facility] valve clinic appointment 04/28/2020. Advised to avoid strenuous activity. Treatment of GERD as per internal medicine. Thank you for allowing me to participate in the care of your patient. History of Present Illness Reason for Consultation: Chest pain, aortic stenosis, elevated troponin Requesting Physician: Dr. Aguirre Attending Physician: Pantera Aguirre MD History of Present Illness 89-year-old patient referred to the ER due to chest discomfort. Patient describes episodes of chest discomfort occurring in the evening. Typically he stays up late and eats a snack. When he attempts to lay down at approximately 130 he notes some discomfort in his substernal region. The discomfort is consistently relieved with sitting upright. Taking Pepto-Bismol nightly which allows him to sleep. Discomfort is not reproduced with activity or exercise. He notes chronic dyspnea with exertion which is unchanged. Functional capacity is stable. No exertional lightheadedness, dizziness, syncope, or near syncope. Denies palpitations, orthopnea, paroxysmal nocturnal dyspnea, lower extremity edema, or weight gain. Carries history of severe aortic stenosis. Troponin min imally elevated and flat on admission. ECG with diffuse nonspecific ST abnormality unchanged from outpatient studies. Repeat echocardiogram confirms presence of severe aortic stenosis without regional wall motion abnormality. Allergies Allergy/AdvReac Type Severity Reaction Status Date / Time atorvastatin [From Lipitor] AdvReac Intermediate muscle pain Verified 03/24/20 13:51 Home Medications Home Medications Medication Instructions Recorded Confirmed Type cholecalciferol (vitamin D3) 25 1,000 unit PO QAM tab 01/30/19 03/24/20 History mcg (1,000 unit) tablet folic acid 1 mg tablet 1 mg PO QAM tab 01/30/19 03/24/20 History losartan 50 mg tablet 50 mg PO QAM tab 01/30/19 03/24/20 History Novolin N NPH U-100 Insulin 18 unit SUBCUT QAM 03/24/19 03/24/20 History Novolin N NPH U-100 Insulin 30 unit SUBCUT QPM 03/24/19 03/24/20 History Novolin R Regular U-100 Insuln 17 unit SUBCUT QAM 03/24/19 03/24/20 History aspirin 81 mg PO QAM 03/24/19 03/24/20 History calcium citrate-vitamin D3 1 tab PO QAM 03/24/19 03/24/20 History [Citracal-D3 Petites] cyanocobalamin (vitamin B-12) 1,000 mcg PO QAM 03/24/19 03/24/20 History [Vitamin B-12] fenofibrate nanocrystallized 48 mg PO QAM 03/24/19 03/24/20 History levothyroxine 75 mcg PO QAM 03/24/19 03/24/20 History meclizine 25 mg PO TID PRN 03/24/19 03/24/20 History rosuvastatin 20 mg PO HS 03/24/19 03/24/20 History omeprazole 20 mg PO BID 04/08/19 03/24/20 History Patient History Medical History Cardiac murmur Chronic kidney disease stage 3 Diabetes mellitus, type 2 IDDM Hearing deficit Hiatal hernia with GERD History of aneurysm unknown cause 1973 History of brachytherapy Hyperlipidemia Hypertension Hypothyroidism Prostate cancer 2005--brachytherapy/radiation Severe aortic stenosis Surgical History History of bilateral cataract extraction History of cerebral aneurysm repair clip placed 08/1973 History of colonoscopy History of cystoscopy History of detached retina repair left eye History of endoscopic sinus surgery History of esophagogastroduodenoscopy (EGD) History of eye surgery left eye "gas bubble placed after detached retina repair" History of left shoulder replacement History of prostate biopsy malignant History of prostate surgery brachytherapy History of right shoulder replacement History of tooth extraction all teeth removed Hx of vasectomy Family History Mother Family history of diabetes mellitus Brother Family history of diabetes mellitus Prostate cancer Other Diabetes Hypertension No family history of adverse response to anesthesia Social History Smoking Status: Never smoker Tobacco Type: Pipe Years Smoked: 45; Second Hand Exposure: No; Do You Dip or Chew Tobacco: No; Tobacco Cessation Education Requested by Patient: No Hx Alcohol Use: No Hx Substance Use: No Preferred Language: Thai Communication Ability: Effective Medication Assistant Required: No Beliefs That Will Affect Care: None marital status: Current Living Situation: Spouse Other Information That Helps Us Care for You: No Feels Safe at Home: Yes Safety Concerns: Feels Safe At This Time Assistive Devices: Hearing Aid - Bilateral Physical Exam Constitutional: well developed and well nourished; no acute distress and not ill appearing Respiratory: normal respiratory effort, lungs clear to auscultation Auscultation: no crackles, no rales, no rhonchi and no wheezes Cardiovascular: Rate/Rhythm: regular rate and regular rhythm Heart Sounds: normal S1 and + murmur (3/6 high-pitched late peaking systolic ejection murmur heard best at the base with radiation to the carotid arteries bilaterally); + abnormal S2 (Diminished) Vessels: no JVD and no carotid bruit Extremities: no edema Gastrointestinal (Abdomen): Inspection/Auscultation: abdomen normal to inspection and normal bowel sounds; abdomen not distended Percussion/Palpation: abdomen soft; abdomen nontender, no guarding and abdomen not rigid Skin: no rashes, warm and dry Neurologic: CN's II-XI intact bilaterally and moves all extremities; no focal motor deficits Speech / Cognition: normal speech Motor/Sensory: no tremor Psychiatric: A+Ox3, euthymic affect Results & Data ([facility]) Vital Signs (Past 12 Hours) Vital Signs Temp Pulse Pulse Resp BP Pulse Ox 03/25/20 10:54 36.6 C 77 18 164/72 H 95 03/25/20 08:07 36.5 C 74 16 169/89 H 98 03/25/20 08:00 57 L 03/25/20 03:17 36.3 C L 74 18 174/68 H 94 (1) Chest pain Chest pain type: unspecified Qualified Code(s): R07.9 - Chest pain, unspecified
--- NOTE | 2020-03-25 15:00 | Hospitalist Progress Note ---
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 History sounds consistent with GI etiology including hiatal hernia/gerd/gastritis Elevated troponin with t wave changes laterally compared to prior ecg 06/2017 - elevated trop possibly 2/2 to CKD vs - but will work up ACS cycle troponin, ecg - pt currently chest pain free repeat echo - last echo 01/28/20 EF 55% with Severe Currently on omeprazole 20mg bid - will add pepcid 20mg bid with emphasis on evening dose to prevent HH sx while lying flat Recommend sitting upright for at least 1 hour after eating, (patient does report that he lays down soon after eating and does not feel well) recommend HOB elevated when sleeping consult cardiology due to elevated trop and hx of severe If worsens and ACS/cardiac source ruled out would recommend follow up with GI as outpt as he is due for repeat EGD (last 08/2019 and recommend f/u was 6 months) Cardiology seen the patient and reviewed echo, recommend for the patient to follow-up at the valvular clinic, he has appointment scheduled for April 28, 2020, for TAVR They also believe that patient's chest discomfort is likely related to GERD, will continue Pepcid and will have patient follow-up with PCP/GI Do not recommend any strenuous activity (5) IDDM (insulin dependent diabetes mellitus): Well-controlled, last A1c 12/12/2019 was 6.1 Continue Novolin (6) HTN (hypertension): Blood pressure elevated in ED, possibly situational Continue losartan Monitor (7) HLD (hyperlipidemia): Continue statin Last cholesterol panel 12/20/2019 revealed total cholesterol 135, HDL 39, LDL 72 (8) CKD (chronic kidney disease), stage III: Baseline creatinine 1.7 BUN/creatinine stable today at 29 and 1.77 Monitor renal function, avoid nephrotoxic agents (9) Hypothyroidism: Continue levothyroxine (10) BPH (benign prostatic hyperplasia): continue afluzosin (11) DVT prophylaxis: SQ Heparin Disposition: admit to [facility] tele Follow up: PCP Dr. Olivo upon discharge, would also recommend follow up with [facility] for HH and pt is due for repeat EGD from 08/2019 (recommendation was 6 month follow up) Follow-up with valvular clinic on April 28, 2020 Admission and Anticipated Discharge Date Admission Date: March 24, 2020 Subjective Patient is currently lying in bed, denies any complaints. Specifically denies any chest pain, shortness of breath, palpitations, nausea, dizziness or lig htheadedness. Patient had echocardiogram done earlier, and was seen by cardiology. Etiology likely GI related. Patient is inquiring about going home. 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 Normal insp/exp effort, no accessory muscle use Cardiovascular: RRR, 2/6 MILAGRO noted precordially, best RUSB with radiation to carotids, no edema Vessels: no JVD or carotid bruit Chest: normal inspection of chest, no reproducible chest pain Abdomen: normal bowel sounds, soft, nontender, mildly distended Musculoskeletal: no cyanosis or clubbing, extremities motor strength 5/5 Skin: warm , dry Neurologic: no face palsy, no dysarthria, moves all extremities Psychiatric: A+Ox3, euthymic affect Results & Data Results & Data ([facility]) Vital Signs (Past 12 Hours) Vital Signs Temp Pulse Pulse Resp BP Pulse Ox 03/25/20 10:54 36.6 C 77 18 164/72 H 95 03/25/20 08:07 36.5 C 74 16 169/89 H 98 03/25/20 08:00 57 L 03/25/20 03:17 36.3 C L 74 18 174/68 H 94 Laboratory Results 03/25/20 03/25/20 03/25/20 Range/Units 11:25 07:40 05:35 WBC (4.8-10.8) K/uL RBC (4.7-6.1) M/uL Hgb (14.0-18.0) g/dL Hct (42-52) % MCV (80-100) fL MCH (25-34) pg MCHC (32-36) g/dL RDW Std Deviation (36.4-46.3) fL RDW Coeff of Marissa (11.5-14.5) % Plt Count (130-400) K/uL MPV (7.4-10.4) fL Sodium (136-145) mmol/L Potassium (3.5-5.1) mmol/L Chloride (98-107) mmol/L Carbon Dioxide (21-32) mmol/L Anion Gap (3-11) BUN (7-18) mg/dl Creatinine (0.6-1.4) mg/dl Est Cr Clr Drug Dosing ml/min Est GFR ( Amer) Est GFR (Non-Af Amer) BUN/Creatinine Ratio (10-20) Glucose (70-99) mg/dl POC Glucose 251 H 104 H (70-99) mg/dl Estimat Average Glucose 123 mg/dl Hemoglobin A1c 5.9 H (4.5-5.6) % Calcium (8.5-10.1) mg/dl Magnesium (1.8-2.4) mg/dl Troponin I (0-0.045) ng/ml 03/25/20 03/25/20 03/25/20 Range/Units 05:35 05:35 00:10 WBC 4.82 (4.8-10.8) K/uL RBC 3.24 L (4.7-6.1) M/uL Hgb 10.5 L (14.0-18.0) g/dL Hct 33.0 L (42-52) % MCV 101.9 H (80-100) fL MCH 32.4 (25-34) pg MCHC 31.8 L (32-36) g/dL RDW Std Deviation 48.5 H (36.4-46.3) fL RDW Coeff of Marissa 13.3 (11.5-14.5) % Plt Count 184 (130-400) K/uL MPV 10.5 H (7.4-10.4) fL Sodium 142 (136-145) mmol/L Potassium 4.5 (3.5-5.1) mmol/L Chloride 109 H (98-107) mmol/L Carbon Dioxide 30 (21-32) mmol/L Anion Gap 3.0 (3-11) BUN 28 H (7-18) mg/dl Creatinine 1.80 H (0.6-1.4) mg/dl Est Cr Clr Drug Dosing 29.4 ml/min Est GFR ( Amer) 38.4 Est GFR (Non-Af Amer) 33.1 BUN/Creatinine Ratio 15.8 (10-20) Glucose 91 (70-99) mg/dl POC Glucose (70-99) mg/dl Estimat Average Glucose mg/dl Hemoglobin A1c (4.5-5.6) % Calcium 8.3 L (8.5-10.1) mg/dl Magnesium (1.8-2.4) mg/dl Troponin I 0.061 H* (0-0.045) ng/ml 03/24/20 03/24/20 03/24/20 Range/Units 20:24 18:01 16:20 WBC (4.8-10.8) K/uL RBC (4.7-6.1) M/uL Hgb (14.0-18.0) g/dL Hct (42-52) % MCV (80-100) fL MCH (25-34) pg MCHC (32-36) g/dL RDW Std Deviation (36.4-46.3) fL RDW Coeff of Marissa (11.5-14.5) % Plt Count (130-400) K/uL MPV (7.4-10.4) fL Sodium (136-145) mmol/L Potassium (3.5-5.1) mmol/L Chloride (98-107) mmol/L Carbon Dioxide (21-32) mmol/L Anion Gap (3-11) BUN (7-18) mg/dl Creatinine (0.6-1.4) mg/dl Est Cr Clr Drug Dosing ml/min Est GFR ( Amer) Est GFR (Non-Af Amer) BUN/Creatinine Ratio (10-20) Glucose (70-99) mg/dl POC Glucose 131 H 155 H (70-99) mg/dl Estimat Average Glucose mg/dl Hemoglobin A1c (4.5-5.6) % Calcium (8.5-10.1) mg/dl Magnesium 2.2 (1.8-2.4) mg/dl Troponin I 0.061 H* (0-0.045) ng/ml (1) Chest pain Chest pain type: unspecified Qualified Code(s): R07.9 - Chest pain, unspecified
--- NOTE | 2020-03-25 15:19 | Discharge Summary ---
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 His is at bedside. He admits over the last several weeks having worsening chest pain, substernal, described as burning and indigestion that occurs mostly when he is lying flat at night. It does not occur every night, but came on last evening and was very severe. He states typically he will sit straight up and go out and take Pepto-Bismol. After remaining upright and take Pepto-Bismol his symptoms usually improve and he is able to return to bed. He states currently he is asymptomatic especially after receiving pantoprazole in ED. He denies any diaphoresis, nausea, palpitations or shortness of breath with the evening episodes. He called into cardiology office today who recommended he seek ED for further evaluation. For 89 he is very active still works in his yard and goes hunting. He states over the last several weeks he has noticed worsening chest discomfort with exertion that is substernal and nonradiating. Typically he would sit down and it would resolve in 1 to 2 minutes. It is now taking approximately 5 minutes to resolve. He states this is the same pain that he feels in the evening as well. Again these episodes are not accompanied with diaphoresis, palpitations, ARCE, S OB or nausea. Currently he feels well and wishes he could go hunting tomorrow. He denies any fever, chills, sweats, lightheadedness, dizziness, syncope, cough, hemoptysis, nausea, vomit, abdominal pain, change in bowel or urinary habits. He does not occasionally get black stool but daily but this typically is after he takes Pepto-Bismol. Patient does follow [facility] cardiology and is being followed in regards to his severe aortic stenosis. Plan is to meet with valve clinic to possibly undergo surgery in future. His last echocardiogram was 01/28/2020 which revealed EF 55% and severe calcified aortic valve. 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 His last EGD was August/2019 with recommended repeat in 6 months. In ED patient remained hemodynamically stable. He was mildly hypertensive at 174/61. Lab work notable for H&H 11.3 and 34.8, to BC 1.52, platelet 213, BUN 29, creatinine 1.77, glucose 120, troponin 0.070. Chest x-ray with cardiomegaly and chronic parenchymal changes but no acute cardiopulmonary abnormality. EKG revealed 76 bpm normal sinus rhythm, first-degree AV block with PVC. He did have some nonspecific ST changes laterally. Admission Exam Per Admitting Provider Constitutional: WD/WN, male, appears younger than stated age, vitals as above, NAD, sitting up in bed, pleasant, conversing easily Head: Normocephalic, Atraumatic Eyes: Right pupil greater than left pupil, normal per patient secondary to left detached retina, conjunctivae normal, anicteric sclerae ENMT: external ear and nose normal, oropharynx normal Neck: trachea midline, no thyromegaly normal visual inspection Respiratory: normal respiratory effort, lungs clear to auscultation, no wheeze, rales, rhonchi. Normal insp/exp effort, no accessory muscle use Cardiovascular: RRR, 2/6 MILAGRO noted precordially, best RUSB with radiation to carotids, no edema Vessels: no JVD or carotid bruit Chest: normal inspection of chest, no reproducible chest pain Abdomen: normal bowel sounds, soft, nontender, no hepatosplenomegaly Musculoskeletal: no cyanosis or clubbing, extremities motor strength 5/5 Skin: multiple SK noted on posterior thorax, no rashes, warm and dry normal turgor Neurologic: no face palsy, no dysarthria CN's II-XI intact bilaterally and moves all extremities Psychiatric: A+Ox3, euthymic affect Principal Diagnosis Chest discomfort, likely secondary to GERD History of severe aortic stenosis Discharge Exam Constitutional: Elderly male, lying in bed, in no acute distress, WD/WN, pleasant, conversing easily Head: Normocephalic, Atraumatic Eyes: Right pupil greater than left pupil, normal per patient secondary to left detached retina, conjunctivae normal, anicteric sclerae ENMT: external ear and nose normal, oropharynx normal Neck: trachea midline, no thyromegaly normal visual inspection Respiratory: normal respiratory effort, lungs clear to auscultation, no wheeze, rales, rhonchi. Normal insp/exp effort, no accessory muscle use Cardiovascular: RRR, 2/6 MILAGRO noted precordially, best RUSB with radiation to carotids, no edema Vessels: no JVD or carotid bruit Chest: normal inspection of chest, no reproducible chest pain Abdomen: normal bowel sounds, soft, nontender, mildly distended Musculoskeletal: no cyanosis or clubbing, extremities motor strength 5/5 Skin: warm , dry Neurologic: no face palsy, no dysarthria, moves all extremities Psychiatric: A+Ox3, euthymic affect Discharge Data Allergies Allergy/AdvReac Type Severity Reaction Status Date / Time atorvastatin [From Lipitor] AdvReac Intermediate muscle pain Verified 03/24/20 13:51 Consultations 03/24/20 13:43 ED Decision to Admit Stat 03/24/20 13:57 Consult Cardiology Routine Hospital Course (1) Chest pain: (2) Elevated troponin I level: (3) Severe aortic stenosis: (4) Hiatal hernia with GERD: This is an 89-year-old male who has significant past medical history of IDDM2, HTN, HLD, severe calcific aortic stenosis, CKD stage III baseline creatinine 1.7, interstitial lung disease and lobar emphysema, 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 History sounds consistent with GI etiology including hiatal hernia/gerd/gastritis Elevated troponin with t wave changes laterally compared to prior ecg 06/2017 - elevated trop possibly 2/2 to CKD vs - but will work up ACS cycle troponin, ecg - pt currently chest pain free repeat echo - last echo 01/28/20 EF 55% with Severe Currently on omeprazole 20mg bid - will add pepcid 20mg bid with emphasis on evening dose to prevent HH sx while lying flat Recommend sitting upright for at least 1 hour after eating, (patient does report that he lays down soon after eating and does not feel well) recommend HOB elevated when sleeping consult cardiology due to elevated trop and hx of severe If worsens and ACS/cardiac source ruled out would recommend follow up with GI as outpt as he is due for repeat EGD (last 08/2019 and recommend f/u was 6 months) Cardiology seen the patient and reviewed echo, recommend for the patient to follow-up at the valvular clinic, he has appointment scheduled for April 28, 2020, for TAVR They also believe that patient's chest discomfort is likely related to GERD, will continue Pepcid and will have patient follow-up with PCP/GI Do not recommend any strenuous activity (5) IDDM (insulin dependent diabetes mellitus): Well-controlled, last A1c 12/12/2019 was 6.1 Continue Novolin (6) HTN (hypertension): Blood pressure elevated in ED, possibly situational Continue losartan Monitor (7) HLD (hyperlipidemia): Continue statin Last cholesterol panel 12/20/2019 revealed total cholesterol 135, HDL 39, LDL 72 (8) CKD (chronic kidney disease), stage III: Baseline creatinine 1.7 BUN/creatinine stable today at 29 and 1.77 Monitor renal function, avoid nephrotoxic agents (9) Hypothyroidism: Continue levothyroxine (10) BPH (benign prostatic hyperplasia): continue afluzosin (11) DVT prophylaxis: SQ Heparin Disposition: admit to med tele Follow up: PCP Dr. Olivo upon discharge, would also recommend follow up with [facility] for HH and pt is due for repeat EGD from 08/2019 (recommendation was 6 month follow up) Follow-up with valvular clinic on April 28, 2020 Total Time Total Time Spent Total Time Spent (In Minutes): 40 Total Time Includes: Examination of the Patient, Discharge Planning, Medication Reconciliation and Communication With Other Providers Discharge Plan Discharge Items Patient Disposition: Home - Self-Care Reason For Visit: CHEST PAIN Discharge Diagnosis: Chest discomfort, likely secondary to GERD History of severe aortic stenosis Condition on Discharge: Good Activity: Per Instructions section Activity Comment: Recommend no strenuous activity Non-emergency contact: Primary Care Provider and Experience Specialist Call non-emergency contact if: you have any medication questions and your symptoms worsen Follow-up/Referrals: Xavier Olivo MD [Primary Care Provider] - (Date & Time 03/31/2020 11:00 AM Provider Xavier Olivo MD [facility] ) Diet: Carb Consistent or DM2 and Heart Healthy Addtl Attending Provider Instructions: Follow-up with primary care doctor on March 31, the appointment was already scheduled for you. Take Pepcid twice a day, in addition to your omeprazole. Make sure that you sit upright at least for 1 hour after eating. Follow-up with cardiology, valvular clinic, your appointment was scheduled for April 28, 2020. You will be contacted about other appointments. Pending Studies at Discharge: No Stand-Alone Forms: [facility], Smoking Cessation Medications and DC Order Prescriptions: New famotidine 20 mg Tablet 20 mg PO BID 30 Days Qty: 60 RF: 0 Continued cholecalciferol (vitamin D3) 1,000 unit (25 mcg) tablet 1,000 unit PO QAM RF: 0 losartan 50 mg tablet 50 mg PO QAM RF: 0 folic acid 1 mg tablet 1 mg PO QAM RF: 0 cyanocobalamin (vitamin B-12) [Vitamin B-12] 1,000 mcg Tablet 1,000 mcg PO QAM RF: 0 aspirin 81 mg Tablet,Delayed Release (Dr/Ec) 81 mg PO QAM RF: 0 levothyroxine 75 mcg Tablet 75 mcg PO QAM RF: 0 meclizine 25 mg Tablet 25 mg PO TID PRN (Reason: Dizziness) RF: 0 Novolin R Regular U-100 Insuln 100 unit/mL Solution 17 unit SUBCUT QAM RF: 0 Novolin N NPH U-100 Insulin 100 unit/mL Suspension 18 unit SUBCUT QAM RF: 0 Novolin N NPH U-100 Insulin 100 unit/mL Suspension 30 unit SUBCUT QPM RF: 0 rosuvastatin 20 mg Tablet 20 mg PO HS RF: 0 fenofibrate nanocrystallized 48 mg Tablet 48 mg PO QAM RF: 0 calcium citrate-vitamin D3 [Citracal-D3 Petites] 200 mg calcium -250 unit Tablet 1 tab PO QAM RF: 0 omeprazole 20 mg Capsule,Delayed Release(Dr/Ec) 20 mg PO BID RF: 0 Discharge Orders: Discharge Order (Routine); Ordered 03/25/20 Ordered By: Pantear Aguirre Admission Data Admit Date/Time: 03/24/20 13:57 Attending Provider: Pantera Aguirre Admit Provider: Dipak Dejesus Primary Care Provider: Xavier Olivo Other Providers: Dipak Dejesus ; Gee Vanegas
[2020-03-25] MEDS: INSULIN HUMAN NPH SC SCH (16:47)
== END 2020-03-25 17:35 | disposition home or self-care (01) ==
LOC: 2S 11:49 → ED 11:49 → SUATTDRO 13:57 → 2S 14:53